=== PATIENT | male | born 1930 | race Caucasian/White ===

== ENCOUNTER 2016-10-31 10:07 | Inpatient (IN) ==
[2016-10-31] MEDS ORDERED: SODIUM CHLORIDE 0.9% 1,000 ML IV STA ×2 (10:37→11:15)
--- NOTE | 2016-10-31 10:43 | Emergency Department Note ---
Ajith Kimble Brooke, am scribing for, and in the presence of, Nick Caputo MD 10:36 . Patito Kimble James D, MD, personally performed the services described in this documentation, ascribed by Comfort Canseco in my presence, and it is both accurate and complete . Arrival - Arrival Chief Complaint: Altered Mental Status Stated Complaint: altered loc Limitations: Altered Mental Status Source: Patient, EMS, RN Notes Reviewed Time Seen by Provider: 10/31/16 10:32 - History of Present Illness HPI Narrative: Patient is a 86 year old male who was brought into the ED by EMS, [facility], with altered mental status. Patient is a poor historian. He has been here in the past and was talkative then, so this is not his normal state. He is not responding to questions upon exam. Allergies/Adverse Reactions: Allergies Allergy/AdvReac Type Severity Reaction Status Date / Time No Known Allergies Allergy Unverified 10/31/16 11:15 Review of System - Review of System ROS unobtainable: due to mental status - Review of System Constitutional: Absent: fever Respiratory: Absent: respiratory distress Medical,Surgical,& Family Hx - Social History Smoking Status: Never smoker Exam Vital Signs: Vital Signs Temperature 96.0 F L 10/31/16 10:15 Pulse Rate 91 H 10/31/16 12:30 Respiratory Rate 17 10/31/16 12:30 Blood Pressure 88/62 10/31/16 12:30 O2 Sat by Pulse Oximetry 96 10/31/16 12:30 GENERAL: This is a chronically ill-appearing, lethargic white male in no apparent distress. VITAL SIGNS: Reviewed HEENT: Head is atraumatic and normocephalic. Pupils are equal round react to light. Extraocular movements are intact. Oropharynx is benign with dry mucous membranes. NECK: Neck is soft and supple without tenderness. There are no masses. There is no lymphadenopathy. LUNGS: Lungs are clear to auscultation. Chest rises symmetrically. There is no chest wall tenderness. CV: Heart is regular rate and rhythm without murmurs rubs or gallops. ABDOMEN: Abdomen is soft, nontender to palpation. There are no abdominal abnormal masses palpated. There is no organomegaly. Bowel sounds are present and active. SKIN: Skin is warm and dry. No rash. EXTREMITIES: Patient has full range of motion without tenderness. There is no pedal edema. NEUROLOGIC: Awake, nonverbal. Cranial nerves II through XII are grossly intact. Motor is 5 over 5 in all extremities bilaterally. Course Course Narrative: Patient was given 2 L bolus of normal saline while in the emergency department. Results - Labs CBC & BMP: 10/31/16 11:42 10/31/16 11:42 Lab Results: I have reviewed the patients labs Labs: Laboratory Tests 10/31/16 11:10 Urine pH 7.0 Ur Specific [place] 1.012 Urine RBC 36 Urine WBC 1575 - EKG EKG results: interpreted by ERMD - Impressions EKG: Normal sinus rhythm with a rate of 71, occasional supraventricular premature complexes, nonspecific intraventricular conduction delay. - Diagnostic Findings Procedure: Chest x-ray: image reviewed by me Disposition Clinical Impression: Altered mental status, Hypotension, Sepsis, Acute renal failure Case discussed with: patient Disposition: Still a Patient Condition: Guarded
--- NOTE | 2016-10-31 11:01 | XRay Report ---
Portable chest Date: 10/31/2016 Clinical history: Alteration of consciousness Comparison: 10/02/2016 Technique: Portable AP sitting chest Findings: The heart is minimally enlarged with uncoiling of the aorta. Calcification in the aortic knob. Persistent relative elevation of the left hemidiaphragm with chronic scarring in the lungs. Decreased parenchymal findings when compared to the previous exam. No acute findings in the mediastinum with degenerative changes. Impression: Persistent relative elevation of the left hemidiaphragm with improved CHF. PROCEDURE INTERPRETED AT [facility] DEPARTMENT OF RADIOLOGY Final Report Signed by: Dr. Kiana Medrano
[2016-10-31] MEDS ORDERED: LEVOFLOXACIN INJ 500 MG in PREMIX 1 EACH IV STA (11:13)
[2016-10-31 11:25] LABS: Apearance,Urine CLOUDY (Clear); Bacteria,Urine Few /HPF (Few); Bilirubin,Urine Negative (Negative); Blood, Urine Small mg/dL (Negative); Glucose,Urine (UA) Negative (Negative); Ketones,Urine 5 mg/dL (Negative); Mucus,Urine Few /LPF (Occasional); Nitrite,Urine Negative (Negative); Protein,Urine 100 MG/DL; RBC,Urine 36 /HPF (0-4); Squamous Epithelial Cell,Urine Moderate /HPF (0-10); Urine Color Yellow (Yellow); Urine Specific Gravity 1.012 (1.001-1.035); Urine Urobilinogen < 2.0 EU/DL (0.2-1.0); WBC,Urine 1575 /HPF (0-6)
--- NOTE | 2016-10-31 11:32 | EKG Report ---
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
[2016-10-31] MEDS ORDERED: LEVOFLOXACIN INJ 100 ML IV ONE (11:40)
[2016-10-31 11:58] LABS: Basophils % 0.3 % (0.0-0.8); Hematocrit 40.3 VOL% (42.0-52.0); Hemoglobin 13.1 GM/DL (14.0-18.0); Immature Granulocytes % 0.6 %; Immature Granulocytes Absolute 0.06 #; Lymphocytes # 1.1 10*3/uL (1.4-4.0); Lymphocytes % 11.1 % (21.2-54.2); Mean Corpuscular HGB Conc 32.5 GM/DL (32-36); Mean Corpuscular Hemoglobin 31 PG (27-34); Mean Corpuscular Volume 94.6 FL (87-102); Mean Platelet Volume 10.8 FL (9.6-12.0); Monocytes # 0.9 10*3/uL (0.11-0.8); Monocytes % 8.8 % (1.7-12.7); Neutrophils # 7.7 10*3/uL (1.4-7.4); Neutrophils % 79.2 % (38.7-73.9); Platelet Count 238 T/CUMM (130-400); Red Blood Count 4.26 MC/CUMM (3.8-5.5); Red Cell Distribution Width 15.6 % (9.3-17.3); White Blood Count 9.7 T/CUMM (4-12)
[2016-10-31 12:09] LABS: INR 1.3; PT Patient Result 13.9 SECS; Partial Thromboplastin Time 30.1 SECS (0-40)
[2016-10-31 12:18] LABS: Lymphocytes 8 % (20-55); Segmented Neutrophils 86 % (50-85); Total Cells Counted 100
[2016-10-31 12:19] LABS: Burr Cells Few; Microcytosis Slight
[2016-10-31 12:28] LABS: Albumin 2.5 G/DL (3.4-5.0); Bilirubin,Total 0.4 MG/DL (0.2-1.0); Osmolality,Calculated 344.4 MOS/KG (273-304); Total Protein 6.3 G/DL (6.4-8.3)
[2016-10-31 12:30] LABS: Troponin I Only 0.201 NG/ML (0.00-0.045)
[2016-10-31 12:31] LABS: Potassium 6.2 MMOL/L (3.5-5.1)
[2016-10-31] MEDS ORDERED: INSULIN REGULAR 100 UNIT/ML IV STA (12:32)
[2016-10-31] MEDS ORDERED: SODIUM BICARBONATE 50 MEQ/50 ML VIAL IV STA (12:32)
[2016-10-31] MEDS ORDERED: DEXTROSE 50% 25 GM/50 ML VIAL IV STA (12:32)
[2016-10-31] MEDS ORDERED: DEXTROSE 50% 25 GM/50 ML VIAL IV ONE (12:39)
[2016-10-31] MEDS ORDERED: SODIUM BICARBONATE 50 MEQ/50 ML SYRINGE IV ONE (12:39)
[2016-10-31] MEDS ORDERED: INSULIN REGULAR 100 UNIT/ML ONE (12:40)
[2016-10-31] MEDS ORDERED: SODIUM CHLORIDE 0.9% 2,000 ML IV ONE (13:10)
[2016-10-31] MEDS ORDERED: ONDANSETRON 4 MG/2 ML VIAL IV PRN (13:16)
[2016-10-31] MEDS ORDERED: guaiFENesin/DM ER 600-30 MG TABLET PO PRN (13:16)
[2016-10-31] MEDS ORDERED: DOCUSATE SODIUM 100 MG CAPSULE PO PRN (13:16)
[2016-10-31] MEDS ORDERED: diphenhydrAMINE CAP 25 MG CAPSULE PO PRN (13:16)
[2016-10-31] MEDS ORDERED: ACETAMINOPHEN 325 MG TABLET PO PRN ×2 (13:16)
--- NOTE | 2016-10-31 13:27 | Hospitalist History & Physical ---
<TelloHyun Shalini - Last Filed: 10/31/16 13:22> Assessment and Plan - Time spent with patient Time spent with patient: Greater than 30 minutes (1) Severe sepsis with acute organ dysfunction Status: Acute Assessment and plan: 86-year-old white male admitted by the hospitalist service to ICU with metabolic encephalopathy due to severe sepsis with acute organ dysfunction due to urinary tract infection. Patient has hyperkalemia and elevated creatinine to 10.9. Patient will receive IV fluids per sepsis protocol, antibiotics have been started for urinary tract infection, nephrology has been consulted for his acute renal failure. His potassium should correct once his creatinine comes down. Restart his home medicines but we will hold all nephrotoxic agents. Dr. Burgess will see and examine patient and further recommendations to follow. Current Visit: Yes (2) Acute hyperkalemia Status: Acute Current Visit: Yes (3) Altered mental status Status: Acute Current Visit: Yes (4) Hypotension Status: Acute Current Visit: Yes (5) Acute renal failure Status: Acute Current Visit: Yes History of Present Illness Chief complaint: Altered mental status History of present illness: Mr. Cruz is a 86 year old male with history of CHF, hypertension, depression, dementia, dyslipidemia presenting to the ED from [facility] with altered mental status. Patient is a poor historian and lethargic. He is not responding to questions appropriately upon exam. Patient is tachycardic with heart rate in the low 100s. He is hypotensive with blood pressure 74/42. His white count is normal but his potassium is elevated at 6.2, creatinine elevated at 10.9. When patient was seen in the ED in September his creatinine was normal. Patient's lactic acid is normal at 1.5. Troponin elevated at 0.201. Patient found to have a urinary tract infection with moderate leukocytes. Herron was inserted and there is purulence in his urine. Patient's chest x-ray is okay and his lungs are clear. Patient's case was discussed with Dr. Caputo the ED physician and Dr. Burgess the admitting hospitalist, and it was agreed patient would be admitted to ICU for evaluation and treatment. Allergies Allergy/AdvReac Type Severity Reaction Status Date / Time No Known Allergies Allergy Unverified 10/31/16 11:15 Medical,Surgical,& Family Hx - Medical History Cardio: History of: CHF, Hypertension Psychological: History of: Depression Endocrine: History of: Dyslipidemia Respiratory: History of: Pneumonia Gastrointestinal: History of: GERD - Surgical History Additional Surgical History: Surgical history is unknown due to patient's mental status - Family History Additional Family History: Family history is unknown due to patient's mental status - Social History Smoking Status: Never smoker Cognitive Capacity: Patient has altered mental status and lethargic. He is not answering appropriate questions. This is difficult to obtain an appropriate review of systems and family history along with social history. Lives With:: [facility] Functional capacity: bed bound ROS unobtainable: due to mental status Exam - Constitutional Vitals: Period Temp Pulse Resp BP Sys/Macario Pulse Ox Last 24 Hr 91-95 17-21 74-88/42-62 96-99 Exam: Constitutional System: No distress. No tremulousness. Head: Normocephalic, atraumatic. Ears, Nose and Throat System: No evidence of Otitis or Mastoiditis. No epistaxis or discharge Eyes System: Pupils equal, round, and reactive. Extraocular muscles intact. Neck: Supple, without adenopathy, No jugular venous distention. No thyromegaly, neck mass, or prior surgery apparent. Respiratory System: Chest clear to auscultation. Cardiovascular System: Heart with tachycardic rate and rhythm. No murmur. GI System: Abdomen soft, nontender. Normo active bowel sounds present. Musculoskeletal System: limbs with no pedal edema. Full distal pulses. Neurological System: No discernable sensory deficit. Psychiatric System: Conversation is difficult due to mental status Results - Labs CBC & BMP: 10/31/16 11:42 10/31/16 11:42 Lab Results: I have reviewed the past 24 hour labs - EKG EKG results: sinus rhythm - Diagnostic Findings Procedure: Chest x-ray: report reviewed by me (Persistent relative elevation of the left hemidiaphragm with improved CHF) <Claudia Burgess - Last Filed: 10/31/16 17:12> History of Present Illness History of present illness: Patient seen and examined with ANDREA Javed, agree with history, assessment and plan as documented. 86 y/o WM admitted with sepsis secondary to urinary tract infection, ANSHUL and AMS. Starting broadly on vancomycin and cefepime. F/u urine culture. Creatinine elevated at 10 with hyperkalemia. Most likely due to hypoperfusion. Consult nephrology. Requiring levophed. Exam - Constitutional Vitals: Period Temp Pulse Resp BP Sys/Macario Pulse Ox Last 24 Hr 75-97 14-21 70-105/42-62 96-99 Results - Labs CBC & BMP: 10/31/16 11:42 10/31/16 11:42
[2016-10-31] MEDS ORDERED: VANCOMYCIN INJ 1,250 MG in SODIUM CHLORIDE 0.9% 250 ML IV PRN (13:30)
[2016-10-31] MEDS ORDERED: PANTOPRAZOLE 40 MG TABLET PO SCH (13:30)
[2016-10-31] MEDS ORDERED: NOREPINEPHRINE 4 MG/4 ML VIAL IV ONE (13:43)
[2016-10-31] MEDS: NOREPINEPHRINE 8 MG in SODIUM CHLORIDE 0.9% 242 ML IV SCH ×2 (13:50→22:58)
[2016-10-31] MEDS ORDERED: CEFEPIME 2,000 MG in SODIUM CHLORIDE 0.9% 100 ML IV ONE (15:00)
--- NOTE | 2016-10-31 15:53 | Nephrology Consult Note ---
History of Present Illness Chief complaint: Admitted with urosepsis. ANSHUL. History of present illness: Mr. Cruz is a 86 year old male with creatinine 1.3 a month ago. Reportedly had AMS at care home. Does not respond to verbal stimuli for me on exam. Hypotensive, purulent urine with >1500 wbcs/hpf, + ketones. Free water deficit manifested by hypernatremia. K 6.2 with hyperchloremic metabolic acidosis. Creatinine 10.9. Pt is on levophed for pressor support and had 3L NS bolused in ED. Home Medications Medication Instructions Recorded Confirmed Type Albuterol/Ipratropium Neb [Duoneb] 3 ml RESP TX RT Q6H PRN 10/31/16 10/31/16 History Amino Acids/Protein Hydrolys 30 ml PO BEDTIME 10/31/16 10/31/16 History [Pro-Stat Sugar Free Liquid] Aspirin Chew Tab 81 mg PO DAILY 10/31/16 10/31/16 History Atorvastatin [Lipitor] 40 mg PO BEDTIME 10/31/16 10/31/16 History Azithromycin Tab [Zithromax Tab] 250 mg PO DAILY 10/31/16 10/31/16 History Calcium (Citr)/Vit D 200-125 1 tablet PO DAILY 10/31/16 10/31/16 History [Citracal + D] Cyanocobalamin Tab [Vitamin B12 1,000 mcg PO DAILY 10/31/16 10/31/16 History Tab] Cyproheptadine Tab [Periactin Tab] 4 mg PO BID 10/31/16 10/31/16 History Docusate Sodium [Colace] 100 mg PO TID 10/31/16 10/31/16 History Ergocalciferol [Drisdol] 50,000 unit PO MO 10/31/16 10/31/16 History Escitalopram [Lexapro] 10 mg PO DAILY 10/31/16 10/31/16 History Furosemide Tab [Lasix Tab] 40 mg PO DAILY 10/31/16 10/31/16 History Gabapentin 300 mg PO BEDTIME 10/31/16 10/31/16 History HydrOXYzine PAMOATE CAP [Vistaril 25 mg PO Q6H PRN 10/31/16 10/31/16 History Cap] Hydrocortisone 2.5% Rectal Cr 1 applic TOP QID PRN 10/31/16 10/31/16 History [Anusol HC Cream] Lisinopril 5 mg PO BID 10/31/16 10/31/16 History Magnesium Hydroxide Susp [Milk of 30 ml PO Q12H PRN 10/31/16 10/31/16 History Magnesia] Meloxicam [Mobic] 15 mg PO DAILY 10/31/16 10/31/16 History Memantine HCl/Donepezil HCl 1 capsule PO QPM 10/31/16 10/31/16 History [Namzaric 28-10 mg] Methylphenidate HCl [Ritalin] 10 mg PO BID 10/31/16 10/31/16 History Metoprolol Succinate Xl [Toprol Xl] 25 mg PO DAILY 10/31/16 10/31/16 History Mirtazapine [Remeron] 30 mg PO BEDTIME 10/31/16 10/31/16 History Multivitamin [Multivitamins] 1 each PO DAILY 10/31/16 10/31/16 History OLANZapine TAB [ZyPREXA Tab] 5 mg PO BEDTIME 10/31/16 10/31/16 History Omeprazole [Prilosec] 20 mg PO DAILY 10/31/16 10/31/16 History Polyethylene Glycol Powder 17 gm PO BEDTIME PRN 10/31/16 10/31/16 History [Miralax] Promethazine Tab [Phenergan Tab] 25 mg PO Q8H PRN 10/31/16 10/31/16 History Senna Tab [Senokot] 17.2 mg PO BID 10/31/16 10/31/16 History Vit C/Vit E AC/Lut/Copper/Zinc 1 each PO BID 10/31/16 10/31/16 History [Preservision Lutein Softgel] valACYclovir [Valtrex] 500 mg PO DAILY 10/31/16 10/31/16 History Allergies Allergy/AdvReac Type Severity Reaction Status Date / Time No Known Allergies Allergy Unverified 10/31/16 11:15 Medical,Surgical,& Family Hx - Medical History Cardio: History of: CHF, Hypertension Psychological: History of: Depression Endocrine: History of: Dyslipidemia Respiratory: History of: Pneumonia Gastrointestinal: History of: GERD - Social History Smoking Status: Never smoker Exam - Vital Signs Vital signs: Period Temp Pulse Resp BP Sys/Macario Pulse Ox Last 24 Hr 75-95 14-21 70-105/42-62 96-99 - General Appearance General appearance: well-developed, chronically ill EENT: ATNC, PERRL, mucous membranes dry Neck: no JVD, no thyromegaly Respiratory: no kyphosis, clear Cardiology: no murmurs, no rub, edema (trace ankle) Gastrointestinal: normoactive bowel sounds, no tenderness Integumentary: no rash, warm and dry Neurologic: no focal deficit, obtunded Musculoskeletal: no deformities, no erythema Results - Labs CBC & BMP: 10/31/16 11:42 10/31/16 11:42 Assessment and Plan (1) ANSHUL (acute kidney injury) Problem details: No acute indication for renal replacement therapy at this time. Status: Acute Assessment and plan: Changed IVFs to D5 for starvation ketosis + 100meq sodium acetate to correct metabolic acidosis and drive potassium back intracellularly. Current Visit: Yes (2) Sepsis Problem details: One dose vancomycin, 1gm IVPB. Continue cefepime, continue levofloxacin 250mg IV q48hr from first dose of 500mg given in ED. Status: Acute Current Visit: Yes (3) Acute hyperkalemia Problem details: No addition treatment indicated other than correction of metabolic acidosis. Status: Acute Current Visit: Yes
[2016-10-31] MEDS: PANTOPRAZOLE 40 MG VIAL IV SCH (15:55)
[2016-10-31] MEDS: SODIUM ACETATE 100 MEQ in DEXTROSE 5% 1,000 ML IV SCH ×2 (16:00→22:59)
[2016-10-31] MEDS ORDERED: SODIUM ACETATE 150 MEQ in STERILE WATER INJ 850 ML IV SCH (16:00)
[2016-10-31] MEDS ORDERED: VANCOMYCIN INJ 1,500 MG in SODIUM CHLORIDE 0.9% 500 ML IV ONE (16:00)
[2016-10-31] MEDS: LEVOFLOXACIN INJ 250 MG in PREMIX 1 EACH IV SCH (16:56)
--- NOTE | 2016-10-31 17:04 | ECHO Report ---
Claritza Cruz Exam Date: 10/31/2016 14:01 Referring Physician: Technologist: Dayna Garsia Age: 86 Ht (in): Wt (lb): Gender: M Exam Location: N: [id number] Indications: BP: / HR: Rhythm: Sinus Technical Quality: Fair IMPRESSIONS Severe global hypokinesis. Grade II/IV diastolic dysfunction, moderately elevated filling pressures. Normal right ventricular size. The right atrium is mildly enlarged. The left atrium is mildly enlarged. Mildly thickened mitral valve with mild mitral regurgitation. Aortic valve sclerosis. Trace to mild aortic valve regurgitation. Mild tricuspid valve regurgitation. PAP40 mmHG. Trace pulmonary valve regurgitation. No pericardial effusion. Normal size aortic root and proximal ascending aorta. MEASUREMENTS (Male / Female) Normal Values 2D ECHO LV Diastolic Diameter PLAX 4.3 cm 4.2 - 5.9 / 3.9 - 5.3 cm LV Systolic Diameter PLAX 3.7 cm LV Fractional Shortening PLAX 14.7 % IVS Diastolic Thickness 1.2 cm 0.6 - 1.0 / 0.6 - 0.9 cm LVPW Diastolic Thickness 1.2 cm 0.6 - 1.0 / 0.6 - 0.9 cm RV Internal Dim ED PLAX 2.7 cm Aortic Root Diameter 3.9 cm LA Systolic Diameter LX 3.1 cm 3.0 - 4.0 / 2.7 - 3.8 cm FINDINGS Left Ventricle EF20-25 %. severe global hypokinesis.Grade II/IV diastolic dysfunction, moderately elevated filling pressures. Right Ventricle Normal right ventricular size. Right Atrium The right atrium is mildly enlarged. Left Atrium The left atrium is mildly enlarged. Mitral Valve Trace mitral valve regurgitation. Mildly thickened mitral valve with mild mitral regurgitation. Aortic Valve Aortic valve sclerosis. Trace to mild aortic valve regurgitation. Tricuspid Valve Morphologically normal tricuspid valve. Mild tricuspid valve regurgitation. PAP40 mmHG. Pulmonic Valve Trace pulmonary valve regurgitation. Pericardium No pericardial effusion. Aorta Normal size aortic root and proximal ascending aorta. Armando Guallpa (Electronically Signed) Final Date: 31 Oct 2016 17:03
[2016-10-31] MEDS: MORPHINE 2 MG/1 ML SYRINGE IV PRN (22:36)
[2016-10-31] MEDS: ENOXAPARIN 30 MG/0.3 ML SYRINGE SUBCUT SCH (22:40)
[2016-11-01] MEDS: MORPHINE 2 MG/1 ML SYRINGE IV PRN ×2 (02:48→21:44)
[2016-11-01] MEDS: NOREPINEPHRINE 8 MG in SODIUM CHLORIDE 0.9% 242 ML IV SCH ×3 (02:57→13:30)
[2016-11-01] MEDS: SODIUM ACETATE 100 MEQ in DEXTROSE 5% 1,000 ML IV SCH ×2 (02:57→08:50)
[2016-11-01 06:05] LABS: Basophils % 0.3 % (0.0-0.8); Eosinophils # 0.1 10*3/uL (0.0-0.87); Eosinophils % 0.5 % (0.00-10.9); Hematocrit 35.3 VOL% (42.0-52.0); Immature Granulocytes % 0.6 %; Immature Granulocytes Absolute 0.08 #; Lymphocytes # 2.1 10*3/uL (1.4-4.0); Lymphocytes % 16.3 % (21.2-54.2); Mean Corpuscular Hemoglobin 31 PG (27-34); Mean Corpuscular Volume 91.9 FL (87-102); Mean Platelet Volume 10.5 FL (9.6-12.0); Monocytes % 7.8 % (1.7-12.7); Neutrophils # 9.4 10*3/uL (1.4-7.4); Neutrophils % 74.5 % (38.7-73.9); Platelet Count 227 T/CUMM (130-400); Red Blood Count 3.84 MC/CUMM (3.8-5.5); Red Cell Distribution Width 15.7 % (9.3-17.3); White Blood Count 12.6 T/CUMM (4-12)
[2016-11-01 06:25] LABS: Band Neutrophils 1 % (0-10); Elliptocytes Few; Hypochromasia Slight; Lymphocytes 16 % (20-55); Platelet Estimate Normal; Segmented Neutrophils 78 % (50-85); Total Cells Counted 100
[2016-11-01 06:26] LABS: Microcytosis Slight
[2016-11-01 06:32] LABS: Calcium 7.9 MG/DL (8.5-10.1); Magnesium 1.5 MG/DL (1.8-2.4); Osmolality,Calculated 344.1 MOS/KG (273-304)
--- NOTE | 2016-11-01 09:10 | Nephrology Progress Note ---
Nephrology - PN: Subj Interval history: No acute overnight events. Pt unresponsive. Still requiring pressor support to maintain MAPS >60mm Hg. Hyperkalemia corrected with correction of his metabolic acidosis. Na up to 149 from 147 reflecting worsening free water deficit. Creatinine improved to 9.0 from 10.9. Urine looks less purulent. Exam (PN)-Nephrology - Vital Signs Vital signs: Period Temp Pulse Resp BP Sys/Macario Pulse Ox Last 24 Hr 97.4 F-98.6 F 75-110 14-28 62-125/36-79 89-99 - General Appearance General appearance: well-developed, chronically ill EENT: ATNC, PERRL, mucous membranes dry Neck: no JVD, no thyromegaly Respiratory: no kyphosis, clear Cardiology: no murmurs, no rub, no edema Gastrointestinal: normoactive bowel sounds, no tenderness Integumentary: no rash, warm and dry Neurologic: obtunded Musculoskeletal: no deformities, no erythema - Lab 11/01/16 05:32 11/01/16 05:32 Most recent lab results Calcium 7.9 MG/DL (8.5-10.1) L 11/01/16 05:32 Magnesium 1.5 MG/DL (1.8-2.4) L 11/01/16 05:32 Assessment and Plan (1) ANSHUL (acute kidney injury) Problem details: Improved. No acute indication for renal replacement therapy at this time. Status: Acute Assessment and plan: Continue bicarb. Change to give more free water. Current Visit: Yes (2) Sepsis Problem details: One dose vancomycin, 1gm IVPB. Continue cefepime, continue levofloxacin 250mg IV q48hr from first dose of 500mg given in ED. Status: Acute Current Visit: Yes (3) Acute hyperkalemia Problem details: No addition treatment indicated other than correction of metabolic acidosis. Status: Acute Current Visit: Yes
[2016-11-01] MEDS: PANTOPRAZOLE 40 MG VIAL IV SCH (09:20)
[2016-11-01] MEDS: STERILE WATER IV SCH ×4 (09:20→22:21)
[2016-11-01] MEDS: SODIUM ACETATE IV SCH ×4 (09:20→22:21)
[2016-11-01] MEDS: SKIN HEALING OINT (AQUAPHOR) 50 GM TUBE TOP PRN (10:00)
--- NOTE | 2016-11-01 10:00 | Hospitalist Progress Note ---
Assessment and Plan (1) Septic shock Status: Acute Assessment and plan: Secondary to UTI. Requiring levophed Continue vanc. Started on levaquin. Cefepime was discontinued. Current Visit: Yes (2) Altered mental status Status: Acute Assessment and plan: Secondary to infection Current Visit: Yes (3) Hypotension Status: Acute Assessment and plan: Due to septic shock Continue levophed Current Visit: Yes (4) ANSHUL (acute kidney injury) Problem details: Improved. No acute indication for renal replacement therapy at this time. Status: Acute Assessment and plan: Related to septic shock, renal hypoperfusion Nephrology assisting Improving with IV fluids with bicarb Current Visit: Yes (5) Hyperkalemia Status: Acute Assessment and plan: Improving Current Visit: Yes Hospitalist: Subjective Interval history: Overnight patient with reports of decreasing oxygen, improved with facemask. Creatinine and potassium downtrending. Nephrology assisting. IV fluids changed to sterile water with bicarb. Continue abx for uti. F/u urine culture. Exam - Constitutional Vitals: Period Temp Pulse Resp BP Sys/Macario Pulse Ox Last 24 Hr 97.4 F-98.6 F 75-110 14-28 62-125/36-79 89-99 General appearance: normal weight - Head Head exam: Present: normocephalic, atraumatic - Eye Eye exam: Present: EOMI Pupils: Present: FRANK - ENT ENT exam: Present: normal exam - Neck Neck exam: Present: normal inspection - Respiratory Respiratory exam: Present: clear to auscultation bilaterally. Absent: rhonchi, wheezes - Cardiovascular Cardiovascular exam: Present: regular rate and rhythm - GI/Abdominal GI/Abdominal exam: Present: normal bowel sounds, soft. Absent: tenderness, rebound - Extremities Exam Extremities exam: Present: normal inspection - Back Exam Back exam: Present: normal inspection - Neurological Exam Neurological exam: Present: other (lethagic) - Psychiatric Psychiatric exam: Present: normal affect, normal mood - Skin Skin exam: Present: warm, intact Results - Labs CBC & BMP: 11/01/16 05:32 11/01/16 05:32
[2016-11-01] MEDS: DESITIN 4OZ/NYSTATIN 15 GRAM MIXTURE PASTE TOP SCH ×2 (11:42→21:44)
[2016-11-01] MEDS ORDERED: CEFEPIME 1,000 MG in SODIUM CHLORIDE 0.9% 100 ML IV SCH (15:00)
[2016-11-01] MEDS: NOREPINEPHRINE 16 MG in SODIUM CHLORIDE 0.9% 234 ML IV SCH (18:37)
[2016-11-01] MEDS: ENOXAPARIN 30 MG/0.3 ML SYRINGE SUBCUT SCH (21:44)
[2016-11-02] MEDS: MORPHINE 2 MG/1 ML SYRINGE IV PRN ×3 (01:09→12:00)
[2016-11-02 01:16] LABS: Magnesium 1.1 MG/DL (1.8-2.4); Potassium 4.1 MMOL/L (3.5-5.1)
[2016-11-02] MEDS ORDERED: SODIUM CHLORIDE 0.9% 2,000 ML IV ONE (01:50)
[2016-11-02] MEDS ORDERED: MAGNESIUM SULF RIDER 4 GM in PREMIX 1 EACH IV ONE (01:50)
[2016-11-02] MEDS ORDERED: MAGNESIUM SULF RIDER 50 ML IV ONE (01:52)
[2016-11-02] MEDS ORDERED: PHENYLEPHRINE DRIP 40 MG/250 ML PREMIX IV ONE (03:45)
[2016-11-02] MEDS ORDERED: SODIUM CHLORIDE 0.9% 500 ML IV ONE ×2 (03:46→06:24)
[2016-11-02] MEDS: NOREPINEPHRINE 16 MG in SODIUM CHLORIDE 0.9% 234 ML IV SCH ×2 (04:02→18:09)
[2016-11-02] MEDS: PHENYLEPHRINE DRIP 40 MG/250 ML PREMIX IV SCH ×3 (04:02→12:01)
[2016-11-02] MEDS: STERILE WATER IV SCH ×3 (05:15→19:25)
[2016-11-02] MEDS: SODIUM ACETATE IV SCH ×3 (05:15→19:25)
[2016-11-02 05:58] LABS: Calcium 7.3 MG/DL (8.5-10.1); Osmolality,Calculated 324.6 MOS/KG (273-304); Potassium 4.1 MMOL/L (3.5-5.1)
[2016-11-02 06:43] LABS: Basophils # 0.1 10*3/uL (0.0-0.2); Basophils % 0.4 % (0.0-0.8); Eosinophils # 0.2 10*3/uL (0.0-0.87); Hematocrit 37.2 VOL% (42.0-52.0); Hemoglobin 12.6 GM/DL (14.0-18.0); Immature Granulocytes Absolute 0.19 #; Lymphocytes # 2.4 10*3/uL (1.4-4.0); Lymphocytes % 12.1 % (21.2-54.2); Mean Corpuscular HGB Conc 33.9 GM/DL (32-36); Mean Corpuscular Hemoglobin 31 PG (27-34); Mean Corpuscular Volume 91.9 FL (87-102); Mean Platelet Volume 10.5 FL (9.6-12.0); Monocytes # 1.3 10*3/uL (0.11-0.8); Monocytes % 6.6 % (1.7-12.7); Neutrophils # 15.7 10*3/uL (1.4-7.4); Neutrophils % 78.9 % (38.7-73.9); Red Blood Count 4.05 MC/CUMM (3.8-5.5); Red Cell Distribution Width 15.6 % (9.3-17.3)
[2016-11-02 06:45] LABS: Platelet Count 180 T/CUMM (130-400); White Blood Count 19.9 T/CUMM (4-12)
[2016-11-02 07:28] LABS: Eosinophils 1 % (0-10); Lymphocytes 12 % (20-55); Segmented Neutrophils 84 % (50-85); Total Cells Counted 100
[2016-11-02 07:29] LABS: Hypochromasia 1+; Microcytosis Slight; Ovalocytes Slight; Platelet Estimate Normal
--- NOTE | 2016-11-02 08:01 | EKG Report ---
Stationary ECG Study [facility] Test Date: 11/02/2016 12:46:12 AM Pat Name: MERCEDES FALLS Department: Room: 111 Gender: M Emergency Vehicle Dispatcher: CURTIS SANCHEZ : 1930 Requested by: Migdalia Collins Order Number: [id number] Reading MD: MARIA ESTHER SARAVIA Intervals [place] Rate: 141 P: 999 [place]: 0 QRS: -44 QRSD: 124 T: 118 QT: 331 QTc: 413 Interpretive Statements ATRIAL FIBRILLATION WITH RAPID VENTRICULAR RESPONSE MARKED LEFT AXIS DEVIATION PROBABLE SEPTAL MYOCARDIAL INFARCTION, PROBABLY OLD MODERATE T-WAVE ABNORMALITY, CONSIDER LATERAL ISCHEMIA Electronically Signed On 11-02-16 11:27:28 CDT by MARIA ESTHER SARAVIA [email or web address]
[2016-11-02] MEDS ORDERED: METOPROLOL TARTRATE 5 MG/5 ML VIAL IV ONE (08:41)
--- NOTE | 2016-11-02 08:44 | Nephrology Progress Note ---
Nephrology - PN: Subj Interval history: Pt responds to verbal stimuli for the first time for me. Says "morning". He went into Afib c RVR last night. Tachy at 150/min now. On two pressors to maintain MAPs. Systolic in 90s. Ucx GNRs/GPCs both >100k colonies, ID and sens pending. WBC up to 19K. Creatinine down to 6.3. Hyperkalemia/acidosis improved. Free water deficit improved. Exam (PN)-Nephrology - Vital Signs Vital signs: Period Temp Pulse Resp BP Sys/Macario Pulse Ox Last 24 Hr 97.0 F-97.8 F 95-152 18-24 75-122/45-93 92-100 - General Appearance General appearance: well-developed, chronically ill EENT: ATNC, PERRL, mucous membranes dry, hearing intact, vision intact Neck: no JVD, no thyromegaly Respiratory: no kyphosis, clear Cardiology: no murmurs, no rub, no edema Gastrointestinal: normoactive bowel sounds, no tenderness Integumentary: no rash, warm and dry Neurologic: no focal deficit, no asterixis Musculoskeletal: no deformities, no erythema Psychiatric: mood/affect appropriate, cooperative - Lab 11/02/16 06:13 11/02/16 05:17 Most recent lab results Calcium 7.3 MG/DL (8.5-10.1) L 11/02/16 05:17 Magnesium 2.0 MG/DL (1.8-2.4) 11/02/16 05:17 Assessment and Plan (1) ANSHUL (acute kidney injury) Problem details: Improved. No acute indication for renal replacement therapy at this time. Status: Acute Assessment and plan: Continue bicarb. Change to give more free water. Current Visit: Yes (2) Sepsis Problem details: Give another dose of vancomycin now 1.5gms IVPB. Check vanc level in am. Redose for level <15. Continue levofloxacin 250mg IV q48hr from first dose of 500mg given in ED. Status: Acute Current Visit: Yes (3) Acute hyperkalemia Problem details: No addition treatment indicated other than correction of metabolic acidosis. Status: Acute Current Visit: Yes (4) Afib Problem details: give lopressor 5mg IVP now stat, may repeat q5min x 2. Consult cardiology. Status: Acute Current Visit: Yes
[2016-11-02] MEDS ORDERED: METOPROLOL TARTRATE 5 MG/5 ML VIAL IV STA (08:45)
[2016-11-02] MEDS ORDERED: DIGOXIN 0.5 MG/2 ML AMP ONE (08:52)
[2016-11-02] MEDS ORDERED: DIGOXIN 0.5 MG/2 ML AMP IV ONE (08:58)
--- NOTE | 2016-11-02 09:17 | Cardiology Consult Note ---
Assessment and Plan - Time spent with patient Time spent with patient: Greater than 30 minutes (1) Dementia Status: Chronic Assessment and plan: SEE PLAN OF CARE LISTED BELOW Current Visit: Yes (2) Dilated cardiomyopathy Status: Chronic Assessment and plan: SEE PLAN OF CARE LISTED BELOW Current Visit: Yes (3) Acute renal failure Status: Acute Assessment and plan: SEE PLAN OF CARE LISTED BELOW Current Visit: Yes (4) Severe sepsis with acute organ dysfunction Status: Acute Assessment and plan: SEE PLAN OF CARE LISTED BELOW Current Visit: Yes (5) Afib Problem details: give lopressor 5mg IVP now stat, may repeat q5min x 2. Consult cardiology. Status: Acute Assessment and plan: SEE PLAN OF CARE LISTED BELOW Current Visit: Yes Qualifiers: Atrial fibrillation type: unspecified Qualified Code(s): I48.91 - Unspecified atrial fibrillation (6) Advanced age Status: Chronic Assessment and plan: SEE PLAN OF CARE LISTED BELOW Current Visit: Yes History of Present Illness - Data of Consult Patient: known to practice within the last 3 years Consult date: 11/02/16 Requesting Physician: Mars Thomas Primary care physician: Domingo Keller - Consult Narrative Reason for consult: Atrial fib with RVR History of present illness: MACHINE HOSTLER: DR. KNUTSON PCP: DR. DOMINGO KELLER Please note, patient is a poor historian and majority of this information is taken from medical records and staff. He is being seen in the ICU. Mr. Cruz, 86WM, is followed by Dr. Knutson. He was last seen in cardiology clinic September 18, 2016. Risk factors include: Advanced age, hypertension, sedentary lifestyle. History of dilated cardiomyopathy, dementia, moderate MR. 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 Patient was admitted with metabolic encephalopathy due to severe sepsis with acute organ dysfunction due to urinary tract infection October 31, 2016. He has acute renal failure and was hyperkalemic on admission. Creatinine initially, 10.9 on admission. This morning at 6.3. Hyperkalemia has resolved with potassium 4.1 this morning. He was severely hypomagnesemic on admission. His troponin is flat 0.201 and 0.190 in the setting of sepsis, severe acute renal failure. Patient developed atrial fibrillation with rapid ventricular response last evening. This morning heart rate is 120 - 130 bpm. He is being maintained on [address] Knutson's clinic note, I see no prior history of known atrial fibrillation. I will give him 1 dose of IV digoxin and monitor his heart rate given his severe renal insufficiency. Again, blood pressure will not allow for introduction of a beta-geovany or calcium channel geovany. At this point he is on phenylephrine and norepinephrine. Would begin with weaning of phenylephrine first. I will order thyroid studies, close monitoring of his electrolytes as well. Echocardiogram reveals: EF 20%, grade 2/4 diastolic dysfunction, mild MR and PAP 40 mmHg. He is mildly anemic. He is receiving Lovenox 30 mg subcu given his severe renal insufficiency. We will further discuss with Dr. Sow and await additional recommendations. ASSESSMENT/PLAN: 1. SEPSIS - continue current plan of care. Blood cultures are pending. He is being treated for UTI. Was treated for pneumonia in August 2016 2. ATRIAL FIBRILLATION WITH RVR - rate control with digoxin this morning. Unfortunately, patient's blood pressure will not allow for introduction of beta- geovany and ALONDRA inhibitor. This may be new onset atrial fib but this is uncertain. Continue with low-dose Lovenox given the severe acute renal failure. 3. DEMENTIA - continue current plan of care 4. ACUTE RENAL FAILURE (STAGE IV) - nephrology has been consulted. This is improving 5. DILATED CARDIOMYOPATHY (EF 20%) - at this time, no evidence of congestive heart failure. Etiology of cardiomyopathy undetermined as he is not a candidate for invasive workup. However, this is a chronic condition. CC: Claudia Burgess MD - Home Medications and Allergies Home Medications: Home Medications Medication Instructions Recorded Confirmed Type Albuterol/Ipratropium Neb [Duoneb] 3 ml RESP TX RT Q6H PRN 10/31/16 10/31/16 History Amino Acids/Protein Hydrolys 30 ml PO BEDTIME 10/31/16 10/31/16 History [Pro-Stat Sugar Free Liquid] Aspirin Chew Tab 81 mg PO DAILY 10/31/16 10/31/16 History Atorvastatin [Lipitor] 40 mg PO BEDTIME 10/31/16 10/31/16 History Azithromycin Tab [Zithromax Tab] 250 mg PO DAILY 10/31/16 10/31/16 History Calcium (Citr)/Vit D 200-125 1 tablet PO DAILY 10/31/16 10/31/16 History [Citracal + D] Cyanocobalamin Tab [Vitamin B12 1,000 mcg PO DAILY 10/31/16 10/31/16 History Tab] Cyproheptadine Tab [Periactin Tab] 4 mg PO BID 10/31/16 10/31/16 History Docusate Sodium [Colace] 100 mg PO TID 10/31/16 10/31/16 History Ergocalciferol [Drisdol] 50,000 unit PO MO 10/31/16 10/31/16 History Escitalopram [Lexapro] 10 mg PO DAILY 10/31/16 10/31/16 History Furosemide Tab [Lasix Tab] 40 mg PO DAILY 10/31/16 10/31/16 History Gabapentin 300 mg PO BEDTIME 10/31/16 10/31/16 History HydrOXYzine PAMOATE CAP [Vistaril 25 mg PO Q6H PRN 10/31/16 10/31/16 History Cap] Hydrocortisone 2.5% Rectal Cr 1 applic TOP QID PRN 10/31/16 10/31/16 History [Anusol HC Cream] Lisinopril 5 mg PO BID 10/31/16 10/31/16 History Magnesium Hydroxide Susp [Milk of 30 ml PO Q12H PRN 10/31/16 10/31/16 History Magnesia] Meloxicam [Mobic] 15 mg PO DAILY 10/31/16 10/31/16 History Memantine HCl/Donepezil HCl 1 capsule PO QPM 10/31/16 10/31/16 History [Namzaric 28-10 mg] Methylphenidate HCl [Ritalin] 10 mg PO BID 10/31/16 10/31/16 History Metoprolol Succinate Xl [Toprol Xl] 25 mg PO DAILY 10/31/16 10/31/16 History Mirtazapine [Remeron] 30 mg PO BEDTIME 10/31/16 10/31/16 History Multivitamin [Multivitamins] 1 each PO DAILY 10/31/16 10/31/16 History OLANZapine TAB [ZyPREXA Tab] 5 mg PO BEDTIME 10/31/16 10/31/16 History Omeprazole [Prilosec] 20 mg PO DAILY 10/31/16 10/31/16 History Polyethylene Glycol Powder 17 gm PO BEDTIME PRN 10/31/16 10/31/16 History [Miralax] Promethazine Tab [Phenergan Tab] 25 mg PO Q8H PRN 10/31/16 10/31/16 History Senna Tab [Senokot] 17.2 mg PO BID 10/31/16 10/31/16 History Vit C/Vit E AC/Lut/Copper/Zinc 1 each PO BID 10/31/16 10/31/16 History [Preservision Lutein Softgel] valACYclovir [Valtrex] 500 mg PO DAILY 10/31/16 10/31/16 History Allergies/Adverse Reactions: Allergies Allergy/AdvReac Type Severity Reaction Status Date / Time No Known Allergies Allergy Unverified 10/31/16 11:15 Review of systems: Unable to obtain a review of systems due to patient's dementia Medical,Surgical,& Family Hx - Medical History Cardio: History of: CHF, Hypertension No history of: CAD, MA Psychological: History of: Depression Neurology: History of: Dementia Endocrine: History of: Dyslipidemia Respiratory: History of: Pneumonia Gastrointestinal: History of: GERD - Social History Smoking Status: Never smoker Frequency of Alcohol Use: Unknown Type of Drug Use: Unknown Marital Status: Unknown Physical Examination Vital Signs Temp Pulse Resp BP Pulse Ox 96.0 F L 93 H 23 66/47 93 L 10/31/16 10:15 10/31/16 10:15 10/31/16 10:15 10/31/16 10:15 10/31/16 10:15 General: [Pleasantly confused but cooperative. ] [Appears comfortable.] HEENT: [Normocephalic, atraumatic. Mucous membranes moist. No jaundice noted. Conjunctiva moist and clear, sclerae anicteric] Neck: No obvious JVD/HJR, no thyromegaly or lymphadenopathy noted. No carotid bruit appreciated Cardiac: [Irregularly irregular rhythm, tachycardia rate. [No obvious murmur , rub or gallop.] Lungs: [Clear to auscultation without accessory muscle use to assist the respiratory pattern.] Using oxygen via nasal cannula. Abdomen: Soft, bowel sounds normoactive. Nontender and nondistended. No abdominal bruit or thrill noted. No masses noted. Musculoskeletal: No fluid collection. Decreased range of motion is noted. Extremities: No clubbing, cyanosis noted. [ LUE edema > RUE edema. ] Generalized edema noted. Upper extremity pulses 2+. Lower extremity pulses 1+ . Capillary refill less than 3 seconds. Skin: No unusual lesions or rashes. No skin breakdown appreciated. Neuro: Awake, alert. No essential tremor is appreciated. Result/EKG - Labs CBC & BMP: 11/02/16 06:13 11/02/16 05:17 Lab Results: I have reviewed the past 24 hour labs Labs: Laboratory Results - last 24 hr 11/02/16 11/02/16 11/02/16 00:44 05:17 06:13 WBC 19.9 H D RBC 4.05 Hgb 12.6 L Hct 37.2 L MCV 91.9 MCH 31 MCHC 33.9 RDW 15.6 Plt Count 180 D MPV 10.5 Neut % (Auto) 78.9 H Lymph % (Auto) 12.1 L Schley % (Auto) 6.6 Eos % (Auto) 1.0 Baso % (Auto) 0.4 Neut # (Auto) 15.7 H Lymph # (Auto) 2.4 Schley # (Auto) 1.3 H Eos # (Auto) 0.2 Baso # (Auto) 0.1 Total Counted 100 Immature Gran % 1.0 Nucleated RBC % 0.0 Immature Gran # 0.19 Segmented Neutrophils 84 Lymphocytes 12 L Monocytes 3 Eosinophils 1 Nucleated RBCs # 0.00 Platelet Estimate Normal Hypochromasia 1+ Microcytosis Slight Ovalocytes Slight Morphology Comment Sodium 146 H Potassium 4.1 4.1 Chloride 110 H Carbon Dioxide 20 L Anion Gap 20.1 H BUN 110 H D Creatinine 6.30 H GFR Calculation 9 BUN/Creatinine Ratio 17.00 Glucose 97 Calculated Osmolality 324.6 H Calcium 7.3 L Magnesium 1.1 L 2.0 - Diagnostic Findings Procedure: Chest x-ray: report reviewed by me - EKG EKG results: interpreted by me EKG shows: atrial fibrillation (RVR)
[2016-11-02] MEDS: PANTOPRAZOLE 40 MG VIAL IV SCH (09:25)
[2016-11-02] MEDS: DESITIN 4OZ/NYSTATIN 15 GRAM MIXTURE PASTE TOP SCH (09:30)
[2016-11-02 09:46] LABS: Free T4 (Free Thyroxine) 1.62 NG/DL (0.76-1.46); Thyroid Stimulating Hormone 0.274 uIU/ml (0.358-3.74)
[2016-11-02] MEDS ORDERED: VANCOMYCIN INJ 1,500 MG in SODIUM CHLORIDE 0.9% 500 ML IV ONE (10:00)
--- NOTE | 2016-11-02 11:48 | Hospitalist Progress Note ---
Assessment and Plan (1) Septic shock Status: Acute Assessment and plan: Secondary to UTI. Requiring levophed Continue vanc. Started on levaquin. Cefepime was discontinued. Current Visit: Yes (2) Altered mental status Status: Acute Assessment and plan: Secondary to infection Current Visit: Yes (3) Hypotension Status: Acute Assessment and plan: Due to septic shock Continue levophed Current Visit: Yes (4) ANSHUL (acute kidney injury) Problem details: Improved. No acute indication for renal replacement therapy at this time. Status: Acute Assessment and plan: Related to septic shock, renal hypoperfusion Nephrology assisting Improving with IV fluids with bicarb Current Visit: Yes (5) Hyperkalemia Status: Resolved Assessment and plan: Improving Current Visit: Yes (6) Afib Problem details: give lopressor 5mg IVP now stat, may repeat q5min x 2. Consult cardiology. Status: Acute Assessment and plan: Given a dose of lopressor Cardiology consulted Current Visit: Yes Qualifiers: Atrial fibrillation type: unspecified Qualified Code(s): I48.91 - Unspecified atrial fibrillation Hospitalist: Subjective Interval history: Overnight, patient went into atrial fibrillation. Magnesium was found to be low , was replaced. This morning heart rate in 150s. He was given a dose of lopressor and cardiology was consulted. Potassium is now down to normal, creatinine continues to improve. Nephrology assisting. Leukocytosis continues to worsen. Urine culture growing gram negative rods and gram positive cocci. Currently on vancomycin and levaquin. F/u urine culture Exam - Constitutional Vitals: Period Temp Pulse Resp BP Sys/Macario Pulse Ox Last 24 Hr 97.0 F-97.8 F 99-152 18-24 75-120/45-93 92-100 General appearance: normal weight - Head Head exam: Present: normocephalic, atraumatic - Eye Eye exam: Present: EOMI Pupils: Present: FRANK - ENT ENT exam: Present: normal exam - Neck Neck exam: Present: normal inspection - Respiratory Respiratory exam: Present: clear to auscultation bilaterally - Cardiovascular Cardiovascular exam: Present: regular rate and rhythm - GI/Abdominal GI/Abdominal exam: Present: normal bowel sounds, soft. Absent: tenderness, rebound - Extremities Exam Extremities exam: Present: normal inspection - Back Exam Back exam: Present: normal inspection - Skin Skin exam: Present: warm, intact Results - Labs CBC & BMP: 11/02/16 06:13 11/02/16 05:17
--- NOTE | 2016-11-02 12:43 | Ultrasound Report ---
Exam: Left upper extremity venous Doppler/duplex ultrasound Comparison: None Clinical history: Left arm swelling Technique: Duplex scan of the left upper extremity veins using th B- mode/grayscale imaging and Dopplers spectral analysis and color flow. Findings: There is normal flow in the left internal jugular, subclavian, axillary, cephalic, brachial, and basilic veins. Major venous structures of the left upper extremity demonstrating normal course and caliber with normal color-flow study and spectral analysis. Normal compression and augmentation. Impression: No evidence to suggest venous thrombosis within the left upper extremity. Ultrasound images were captured and stored. PROCEDURE INTERPRETED AT [facility] DEPARTMENT OF RADIOLOGY Final Report Signed by: Dr. Kiana Medrano
--- NOTE | 2016-11-02 14:10 | Operative Note ---
Date of procedure: 11/02/16 Pre-op diagnosis: Inadequate venous access Post-op diagnosis: same Procedure: Preoperative diagnosis Hypotension with inadequate venous access Postoperative diagnosis Same Procedures performed Right internal jugular central line placement Ultrasound guidance and interpretation of images Findings The right internal jugular vein was compressible and was accessed on second stick with venous nonpulsatile blood return. Wire placement was confirmed with ultrasound and the vein was accessed under ultrasound guidance. The catheter was placed at 15 centimeters at the skin level. Complications None apparent Specimen None Anesthesia Local 10 cc lidocaine Indication Hypotension with inadequate venous access Description of procedure The patient was placed in supine position in his ICU bed. The neck was prepped with chlorhexidine and draped sterilely. Timeout was called. Ultrasound was used to identify the vascular structures in the right neck. The jugular vein is compressible. Local anesthetic was administered under ultrasound guidance. The vein was accessed with a needle on the second attempt under ultrasound guidance. Venous nonpulsatile blood return was obtained. A wire was passed easily into the venous system and placement was confirmed again with ultrasound. A skin incision was made alongside the wire and the dilator was placed over the wire. Seldinger technique was used to place a triple-lumen catheter and it was threaded over the wire up to 15 centimeters at the skin. The catheter was sewn in place at this location. All 3 lm returned blood easily and were flushed with saline. The catheter was sewn in place with 3-0 silk sutures in a Biopatch sterile dressing was placed with Tegaderm. Postoperative plan Chest x-ray Surgeon / Physician: Kyle Pizarro Results - Labs CBC & BMP: 11/02/16 06:13 11/02/16 05:17 Discharge Plan - Discharge Medications No Action Meloxicam [Mobic] 15 mg PO DAILY Multivitamin [Multivitamins] 1 each PO DAILY Magnesium Hydroxide Susp [Milk of Magnesia] 30 ml PO Q12H PRN PRN Reason: Constipation Gabapentin 300 mg PO BEDTIME Calcium (Citr)/Vit D 200-125 [Citracal + D] 1 tablet PO DAILY Docusate Sodium [Colace] 100 mg PO TID Senna Tab [Senokot] 17.2 mg PO BID Memantine HCl/Donepezil HCl [Namzaric 28-10 mg] 1 capsule PO QPM Promethazine Tab [Phenergan Tab] 25 mg PO Q8H PRN PRN Reason: Nausea Hydrocortisone 2.5% Rectal Cr [Anusol HC Cream] 1 applic TOP QID PRN PRN Reason: Hemorrhoids Ergocalciferol [Drisdol] 50,000 unit PO MO Albuterol/Ipratropium Neb [Duoneb] 3 ml RESP TX RT Q6H PRN PRN Reason: Shortness Of Breath/Wheezing Metoprolol Succinate Xl [Toprol Xl] 25 mg PO DAILY HydrOXYzine PAMOATE CAP [Vistaril Cap] 25 mg PO Q6H PRN PRN Reason: Anxiety Atorvastatin [Lipitor] 40 mg PO BEDTIME Aspirin Chew Tab 81 mg PO DAILY Lisinopril 5 mg PO BID Furosemide Tab [Lasix Tab] 40 mg PO DAILY Cyproheptadine Tab [Periactin Tab] 4 mg PO BID OLANZapine TAB [ZyPREXA Tab] 5 mg PO BEDTIME Amino Acids/Protein Hydrolys [Pro-Stat Sugar Free Liquid] 30 ml PO BEDTIME Azithromycin Tab [Zithromax Tab] 250 mg PO DAILY valACYclovir [Valtrex] 500 mg PO DAILY Omeprazole [Prilosec] 20 mg PO DAILY Polyethylene Glycol Powder [Miralax] 17 gm PO BEDTIME PRN PRN Reason: Constipation Vit C/Vit E AC/Lut/Copper/Zinc [Preservision Lutein Softgel] 1 each PO BID Cyanocobalamin Tab [Vitamin B12 Tab] 1,000 mcg PO DAILY Mirtazapine [Remeron] 30 mg PO BEDTIME Escitalopram [Lexapro] 10 mg PO DAILY Methylphenidate HCl [Ritalin] 10 mg PO BID - Follow Up or Referral - Forms/Instructions
--- NOTE | 2016-11-02 15:15 | XRay Report ---
XR chest 1V portable Indication: Central line placement Comparison: Chest x-ray 10/31/2016 Technique: Portable AP chest was performed. Findings: Right-sided IJ central venous catheter terminates within the superior vena cava. No pneumothorax or other complication from line placement is demonstrated. A Limited inspiration is present and bilaterally, central vasculature has increased in prominence and perihilar interstitial stranding is noted suggesting a component of crowding. Minimal pulmonary edema is not excluded. Chest is otherwise stable. Impression: 1. Interval placement of right-sided IJ catheter without evidence of complication. 2. Vascular crowding and/or mild pulmonary edema could be considered. 3. Otherwise stable chest. 11/02/2016 3:12 PM PROCEDURE INTERPRETED AT [facility] DEPARTMENT OF RADIOLOGY Final Report Signed by: Dr. Andrew Johnson
[2016-11-02 15:41] LABS: Calcium 7.1 MG/DL (8.5-10.1); Magnesium 1.8 MG/DL (1.8-2.4); Osmolality,Calculated 317.7 MOS/KG (273-304); Potassium 3.9 MMOL/L (3.5-5.1)
[2016-11-02] MEDS: LEVOFLOXACIN INJ 250 MG in PREMIX 1 EACH IV SCH (16:28)
[2016-11-02] MEDS: PHENYLEPHRINE INJ 160 MG in SODIUM CHLORIDE 0.9% 234 ML IV SCH (17:28)
[2016-11-02] MEDS: ENOXAPARIN 30 MG/0.3 ML SYRINGE SUBCUT SCH (21:35)
[2016-11-03] MEDS: STERILE WATER IV SCH ×4 (03:20→23:48)
[2016-11-03] MEDS: SODIUM ACETATE IV SCH ×4 (03:20→23:48)
[2016-11-03] MEDS: MORPHINE 2 MG/1 ML SYRINGE IV PRN ×2 (03:25→07:39)
[2016-11-03] MEDS: DESITIN 4OZ/NYSTATIN 15 GRAM MIXTURE PASTE TOP SCH ×3 (04:04→21:23)
[2016-11-03 05:02] LABS: Basophils % 0.2 % (0.0-0.8); Eosinophils # 0.3 10*3/uL (0.0-0.87); Eosinophils % 1.3 % (0.00-10.9); Hematocrit 32.8 VOL% (42.0-52.0); Hemoglobin 10.9 GM/DL (14.0-18.0); Immature Granulocytes % 1.1 %; Immature Granulocytes Absolute 0.21 #; Lymphocytes % 10.4 % (21.2-54.2); Mean Corpuscular HGB Conc 33.2 GM/DL (32-36); Mean Corpuscular Hemoglobin 31 PG (27-34); Mean Corpuscular Volume 91.9 FL (87-102); Mean Platelet Volume 10.8 FL (9.6-12.0); Monocytes # 0.9 10*3/uL (0.11-0.8); Monocytes % 4.8 % (1.7-12.7); Neutrophils # 15.4 10*3/uL (1.4-7.4); Neutrophils % 82.2 % (38.7-73.9); Platelet Count 140 T/CUMM (130-400); Red Blood Count 3.57 MC/CUMM (3.8-5.5); Red Cell Distribution Width 15.5 % (9.3-17.3); White Blood Count 18.8 T/CUMM (4-12)
[2016-11-03 05:26] LABS: Burr Cells Slight; Elliptocytes Few; Hypochromasia 1+; Platelet Estimate Normal
[2016-11-03 05:27] LABS: Microcytosis Slight
[2016-11-03 05:31] LABS: Calcium 7.7 MG/DL (8.5-10.1); Magnesium 1.6 MG/DL (1.8-2.4); Osmolality,Calculated 312.8 MOS/KG (273-304); Potassium 3.7 MMOL/L (3.5-5.1)
[2016-11-03] MEDS: LEVOTHYROXINE 100 MCG VIAL IV SCH (06:33)
--- NOTE | 2016-11-03 06:49 | XRay Report ---
Portable chest Date: 11/03/2016 Clinical history: CHF Comparison: 11/02/2016 Technique: Portable AP sitting chest Findings: Stable cardiomegaly with uncoiling of the aorta. Multiple skin folds are noted with stable right IJ CVP line. Minimal reduction in the parenchymal findings at the lung bases with smaller pleural effusions. Stable mediastinum and osseous structures. Impression: Minimally improved pulmonary edema/infiltration with minimally smaller pleural effusions. Skin folds limit the exam. PROCEDURE INTERPRETED AT [facility] DEPARTMENT OF RADIOLOGY Final Report Signed by: Dr. Kiana Medrano
[2016-11-03] MEDS: PANTOPRAZOLE 40 MG VIAL IV SCH (08:39)
--- NOTE | 2016-11-03 08:45 | Cardiology Progress Note ---
Assessment and Plan - Time spent with patient Time spent with patient: Greater than 30 minutes (1) Dementia Status: Chronic Assessment and plan: SEE PLAN OF CARE LISTED BELOW Current Visit: Yes (2) Dilated cardiomyopathy Status: Chronic Assessment and plan: SEE PLAN OF CARE LISTED BELOW Current Visit: Yes (3) Acute renal failure Status: Acute Assessment and plan: SEE PLAN OF CARE LISTED BELOW Current Visit: Yes (4) Severe sepsis with acute organ dysfunction Status: Acute Assessment and plan: SEE PLAN OF CARE LISTED BELOW Current Visit: Yes (5) Afib Problem details: give lopressor 5mg IVP now stat, may repeat q5min x 2. Consult cardiology. Status: Acute Assessment and plan: SEE PLAN OF CARE LISTED BELOW Current Visit: Yes Qualifiers: Atrial fibrillation type: unspecified Qualified Code(s): I48.91 - Unspecified atrial fibrillation (6) Advanced age Status: Chronic Assessment and plan: SEE PLAN OF CARE LISTED BELOW Current Visit: Yes Cardiology - PN: Subj Interval history: [employer]: DR. KNUTSON PCP: DR. DELPHINE FAUST SUMMARY: Mr. Cruz, 86WM, is followed by Dr. Knutson. He was last seen in cardiology clinic September 18, 2016. Risk factors include: Advanced age, hypertension, sedentary lifestyle. History of dilated cardiomyopathy, dementia , moderate MR. History of acute on chronic systolic and diastolic CHF. Echocardiogram reveals: EF 20%, grade 2/4 diastolic dysfunction, mild MR and PAP 40 mmHg. Patient was admitted October 31, 2016 with metabolic encephalopathy due to severe sepsis with acute organ dysfunction due to urinary tract infection. Cardiology was consulted for atrial fibrillation with rapid ventricular response (this is suspected to be new onset). He has acute renal failure and was hyperkalemic on admission, hypomagnesemic as well. Troponins flat 0.201 and 0.190. Patient developed atrial fibrillation with rapid ventricular response last evening. This morning heart rate is 120 - 130 bpm. He is being maintained on [address] Knutson's clinic note, I see no prior history of known atrial fibrillation. I will give him 1 dose of IV digoxin and monitor his heart rate given his severe renal insufficiency. Again, blood pressure will not allow for introduction of a beta-geovany or calcium channel geovany. At this point he is on phenylephrine and norepinephrine. Would begin with weaning of phenylephrine first. I will order thyroid studies, close monitoring of his electrolytes as well. NOVEMBER 03, 2016: Patient is demented and is confused this morning. Overnight, 1 of 2 pressors has been weaned off. He still maintained on phenylephrine with stable vital signs. Heart rate is controlled this morning. Blood cultures are negative so far. Being treated for urinary tract infection. Chest x-ray this morning reveals mild improvement in pulmonary edema. Will give low-dose Lasix today and watch his creatinine closely. We will further discuss with Dr. Sow and await additional recommendations. ASSESSMENT/PLAN: 1. SEPSIS - continue current plan of care. Blood cultures are negative so far. He is being treated for UTI. Was treated for pneumonia in August 2016. Overnight, remains afebrile. WBCs improving (18.8 this morning). 2. ATRIAL FIBRILLATION WITH RVR - rate control achieved yesterday. Patient's blood pressure will not allow for introduction of beta-geovany and ALONDRA inhibitor. This may be new onset atrial fib but this is uncertain. Continue with low-dose Lovenox given the severe acute renal failure. 3. DEMENTIA - continue current plan of care 4. ACUTE RENAL FAILURE (STAGE IV) - nephrology has been consulted. On arrival , creatinine 10.9. Continues to improve S/P creatinine is 5.0 this morning. 5. DILATED CARDIOMYOPATHY (EF 20%) - etiology of cardiomyopathy undetermined as he is not a candidate for invasive workup. However, this is a chronic condition. When able, introduce beta blockade and ALONDRA inhibitor. 6. ELEVATED TROPONIN - this is not NSTEMI. Continue with current plan of care. Exam (Progress Note) - Constitutional Vitals: Period Temp Pulse Resp BP Sys/Macario Pulse Ox Last 24 Hr 97.3 F-97.9 F 69-136 12-22 87-133/45-85 94-100 Exam: General: [Pleasantly confused but cooperative. ] [Appears comfortable.] HEENT: [Normocephalic, atraumatic. Mucous membranes moist. No jaundice noted. Conjunctiva moist and clear, sclerae anicteric] Neck: No obvious JVD/HJR, no thyromegaly or lymphadenopathy noted. No carotid bruit appreciated Cardiac: [Irregularly irregular rhythm, controlled rate. [No obvious murmur, rub or gallop.] Lungs: [Clear to auscultation without accessory muscle use to assist the respiratory pattern.] Using oxygen via nasal cannula. Abdomen: Soft, bowel sounds normoactive. Nontender and nondistended. No abdominal bruit or thrill noted. No masses noted. Musculoskeletal: No fluid collection. Decreased range of motion is noted. Extremities: No clubbing, cyanosis noted. [ LUE edema > RUE edema. ] Generalized edema noted. Upper extremity pulses 2+. Lower extremity pulses 1+ . Capillary refill less than 3 seconds. Skin: No unusual lesions or rashes. No skin breakdown appreciated. Neuro: Awake, alert. No essential tremor is appreciated. Result/EKG - Labs CBC & BMP: 11/03/16 04:45 11/03/16 04:45 Lab Results: I have reviewed the past 24 hour labs Labs: Laboratory Results - last 24 hr 11/02/16 11/02/16 11/03/16 00:43 15:22 04:45 WBC 18.8 H RBC 3.57 L Hgb 10.9 L Hct 32.8 L MCV 91.9 MCH 31 MCHC 33.2 RDW 15.5 Plt Count 140 D MPV 10.8 Neut % (Auto) 82.2 H Lymph % (Auto) 10.4 L Bureau % (Auto) 4.8 Eos % (Auto) 1.3 Baso % (Auto) 0.2 Neut # (Auto) 15.4 H Lymph # (Auto) 2.0 Bureau # (Auto) 0.9 H Eos # (Auto) 0.3 Baso # (Auto) 0.0 Immature Gran % 1.1 Nucleated RBC % 0.0 Immature Gran # 0.21 Nucleated RBCs # 0.00 Platelet Estimate Normal Hypochromasia 1+ Microcytosis Slight Lyons Cells Slight Elliptocytes Few Morphology Comment Sodium 145 Potassium 3.9 Chloride 107 Carbon Dioxide 26 Anion Gap 15.9 H BUN 99 H D Creatinine 5.60 H GFR Calculation 10 BUN/Creatinine Ratio 17.00 Glucose 88 Calculated Osmolality 317.7 H Calcium 7.1 L Magnesium 1.8 Free T4 1.62 H TSH 3rd Generation 0.274 L 11/03/16 04:45 WBC RBC Hgb Hct MCV MCH MCHC RDW Plt Count MPV Neut % (Auto) Lymph % (Auto) Bureau % (Auto) Eos % (Auto) Baso % (Auto) Neut # (Auto) Lymph # (Auto) Bureau # (Auto) Eos # (Auto) Baso # (Auto) Immature Gran % Nucleated RBC % Immature Gran # Nucleated RBCs # Platelet Estimate Hypochromasia Microcytosis Tc Cells Elliptocytes Morphology Comment Sodium 144 Potassium 3.7 Chloride 104 Carbon Dioxide 27 Anion Gap 16.7 H BUN 91 H Creatinine 5.00 H GFR Calculation 12 BUN/Creatinine Ratio 18.00 Glucose 74 Calculated Osmolality 312.8 H Calcium 7.7 L Magnesium 1.6 L Free T4 TSH 3rd Generation - EKG EKG results: interpreted by me EKG shows: atrial fibrillation
--- NOTE | 2016-11-03 10:27 | Nephrology Progress Note ---
Nephrology - PN: Subj Interval history: UOP increasing 1470cc/24h->2200cc last 24h. Creatinine down to 5.0. Exam (PN)-Nephrology - Vital Signs Vital signs: Period Temp Pulse Resp BP Sys/Macario Pulse Ox Last 24 Hr 97.3 F-97.9 F 69-85 12-22 67-133/45-85 93-100 - General Appearance General appearance: well-developed, chronically ill EENT: ATNC, PERRL, mucous membranes dry, hearing intact Neck: no JVD, no thyromegaly Respiratory: no kyphosis, no scoliosis Cardiology: no murmurs, no rub Gastrointestinal: normoactive bowel sounds, no tenderness Integumentary: no rash, warm and dry Neurologic: no focal deficit, no asterixis Musculoskeletal: no deformities, no erythema Psychiatric: mood/affect appropriate, cooperative - Lab 11/03/16 04:45 11/03/16 04:45 Most recent lab results Calcium 7.7 MG/DL (8.5-10.1) L 11/03/16 04:45 Magnesium 1.6 MG/DL (1.8-2.4) L 11/03/16 04:45 Assessment and Plan (1) ANSHUL (acute kidney injury) Problem details: Improved. No acute indication for renal replacement therapy at this time. Status: Acute Assessment and plan: Continue IVFs, decreased rate to 75cc/hr. Current Visit: Yes (2) Sepsis Problem details: No vanc level resulted. Ordered yesterday. Reorder for random vanc level in am. Redose for level <15. Continue levofloxacin 250mg IV q48hr from first dose of 500mg given in ED. Status: Acute Current Visit: Yes (3) Acute hyperkalemia Problem details: Resolved with correction of metabolic acidosis. Status: Resolved Current Visit: Yes (4) Afib Problem details: give lopressor 5mg IVP now stat, may repeat q5min x 2. Consult cardiology. Status: Acute Current Visit: Yes Qualifiers: Atrial fibrillation type: unspecified Qualified Code(s): I48.91 - Unspecified atrial fibrillation (5) Hypernatremia Problem details: Improving with increased free water replacement. 144 this am. IVFs reduced to 75cc/hr. Status: Acute Current Visit: Yes
[2016-11-03] MEDS ORDERED: MAGNESIUM SULF RIDER 4 GM in PREMIX 1 EACH IV PRN (12:13)
[2016-11-03] MEDS: PHENYLEPHRINE INJ 160 MG in SODIUM CHLORIDE 0.9% 234 ML IV SCH ×2 (12:19→18:15)
[2016-11-03] MEDS: MAGNESIUM SULF RIDER 2 GM in PREMIX 1 EACH IV PRN (12:20)
--- NOTE | 2016-11-03 12:36 | Hospitalist Progress Note ---
Assessment and Plan (1) Septic shock Status: Acute Assessment and plan: Secondary to UTI. Requiring pressor. Continue vanc. Starting rocephin. Current Visit: Yes (2) Altered mental status Status: Acute Assessment and plan: Secondary to infection Current Visit: Yes (3) Hypotension Status: Acute Assessment and plan: Due to septic shock Continue ming Current Visit: Yes (4) ANSHUL (acute kidney injury) Problem details: Improved. No acute indication for renal replacement therapy at this time. Status: Acute Assessment and plan: Related to septic shock, renal hypoperfusion Nephrology assisting Improving with IV fluids with bicarb Current Visit: Yes (5) Hyperkalemia Status: Resolved Assessment and plan: Improving Current Visit: Yes (6) Afib Problem details: give lopressor 5mg IVP now stat, may repeat q5min x 2. Consult cardiology. Status: Acute Assessment and plan: Given a dose of lopressor Cardiology consulted Current Visit: Yes Qualifiers: Atrial fibrillation type: unspecified Qualified Code(s): I48.91 - Unspecified atrial fibrillation (7) Urinary tract infection Status: Acute Assessment and plan: Urine culture growing proteus mirabilis and enterococcus faecalis Start rocephin Current Visit: Yes Hospitalist: Subjective Interval history: No acute events overnight. Patient is more awake this morning. Not much change in leukocytosis. Urine culture proteus mirablilis and enterococcus faecalis. Proteus not sensitive for levaquin, will discontinue and start rocephin for now. Will continue vancomycin for now. Patient still now awake enough to eat, will place dobhoff and start tube feeds. Exam - Constitutional Vitals: Period Temp Pulse Resp BP Sys/Macario Pulse Ox Last 24 Hr 97.3 F-97.8 F 69-85 12-22 67-133/45-85 93-100 General appearance: normal weight - Head Head exam: Present: normocephalic, atraumatic - Eye Eye exam: Present: EOMI Pupils: Present: FRANK - ENT ENT exam: Present: normal exam - Neck Neck exam: Present: normal inspection - Respiratory Respiratory exam: Present: clear to auscultation bilaterally. Absent: rhonchi, wheezes - Cardiovascular Cardiovascular exam: Present: regular rate and rhythm - GI/Abdominal GI/Abdominal exam: Present: normal bowel sounds, soft. Absent: tenderness, rebound - Extremities Exam Extremities exam: Present: normal inspection - Back Exam Back exam: Present: normal inspection - Neurological Exam Neurological exam: Present: alert - Psychiatric Psychiatric exam: Present: normal affect, normal mood - Skin Skin exam: Present: warm, intact Results - Labs CBC & BMP: 11/03/16 04:45 11/03/16 04:45
[2016-11-03] MEDS: cefTRIAXone 1,000 MG in SODIUM CHLORIDE 0.9% 100 ML IV SCH (12:43)
[2016-11-03] MEDS ORDERED: DEXTROSE 50% 25 GM/50 ML VIAL IV PRN (13:36)
[2016-11-03] MEDS ORDERED: GLUCAGON 1 MG VIAL IM PRN (13:36)
[2016-11-03] MEDS: INSULIN REGULAR 100 UNIT/ML SUBCUT SCH (18:15)
[2016-11-03] MEDS: NOREPINEPHRINE 16 MG in SODIUM CHLORIDE 0.9% 234 ML IV SCH (18:15)
[2016-11-03] MEDS: ENOXAPARIN 30 MG/0.3 ML SYRINGE SUBCUT SCH (21:22)
[2016-11-04] MEDS: INSULIN REGULAR 100 UNIT/ML SUBCUT SCH ×4 (00:10→18:00)
[2016-11-04 04:59] LABS: Basophils % 0.2 % (0.0-0.8); Eosinophils # 0.3 10*3/uL (0.0-0.87); Eosinophils % 1.9 % (0.00-10.9); Hematocrit 31.6 VOL% (42.0-52.0); Hemoglobin 10.6 GM/DL (14.0-18.0); Immature Granulocytes % 0.8 %; Immature Granulocytes Absolute 0.12 #; Lymphocytes # 1.6 10*3/uL (1.4-4.0); Lymphocytes % 11.3 % (21.2-54.2); Mean Corpuscular HGB Conc 33.5 GM/DL (32-36); Mean Corpuscular Hemoglobin 31 PG (27-34); Mean Corpuscular Volume 91.9 FL (87-102); Mean Platelet Volume 10.7 FL (9.6-12.0); Monocytes # 0.9 10*3/uL (0.11-0.8); Monocytes % 6.2 % (1.7-12.7); Neutrophils # 11.4 10*3/uL (1.4-7.4); Neutrophils % 79.6 % (38.7-73.9); Platelet Count 125 T/CUMM (130-400); Red Blood Count 3.44 MC/CUMM (3.8-5.5); White Blood Count 14.3 T/CUMM (4-12)
[2016-11-04 05:19] LABS: Calcium 7.8 MG/DL (8.5-10.1); Magnesium 1.8 MG/DL (1.8-2.4); Osmolality,Calculated 306.1 MOS/KG (273-304); Phosphorous 3.4 MG/DL (2.5-4.9); Potassium 3.3 MMOL/L (3.5-5.1)
[2016-11-04] MEDS: LEVOTHYROXINE 100 MCG VIAL IV SCH (06:24)
[2016-11-04] MEDS: MAGNESIUM SULF RIDER 2 GM in PREMIX 1 EACH IV PRN (07:14)
[2016-11-04] MEDS: MORPHINE 2 MG/1 ML SYRINGE IV PRN ×4 (07:33→19:36)
--- NOTE | 2016-11-04 08:06 | XRay Report ---
XR chest 1V portable Indication: Confirm weighted feeding tube placement. Comparison: None. Technique: Portable AP chest was performed. Findings: Weighted feeding tube appears to project within the gastric fundus. Impression: 1. Weighted feeding tube placement as detailed. 11/04/2016 8:03 AM PROCEDURE INTERPRETED AT [facility] DEPARTMENT OF RADIOLOGY Final Report Signed by: Dr. Andrew Johnson
[2016-11-04] MEDS: PANTOPRAZOLE 40 MG VIAL IV SCH (08:15)
[2016-11-04] MEDS: DESITIN 4OZ/NYSTATIN 15 GRAM MIXTURE PASTE TOP SCH ×2 (08:18→21:09)
[2016-11-04] MEDS ORDERED: MAGNESIUM SULF RIDER 2 GM in PREMIX 1 EACH IV PRN (08:21)
[2016-11-04] MEDS ORDERED: MAGNESIUM SULF RIDER 4 GM in PREMIX 1 EACH IV PRN (08:21)
--- NOTE | 2016-11-04 08:26 | Cardiology Progress Note ---
Assessment and Plan (1) Afib Problem details: give lopressor 5mg IVP now stat, may repeat q5min x 2. Consult cardiology. Status: Acute Assessment and plan: 11/04: The patient rates are reasonably well controlled currently and we will continue his current medications. His blood pressure is borderline depending on his level of sedation. He is requiring intravenous Quique-Synephrine for blood pressure support currently. Current Visit: Yes Qualifiers: Atrial fibrillation type: unspecified Qualified Code(s): I48.91 - Unspecified atrial fibrillation (2) Dementia Status: Chronic Current Visit: Yes (3) Dilated cardiomyopathy Status: Chronic Assessment and plan: 11/04: Patient is receiving significant amount of intravenous fluid according to his I's and O's but is not in CHF currently. We will continue his current medications and follow. Current Visit: Yes Cardiology - PN: Subj Interval history: Patient with history of cardiomyopathy atrial fibrillation dementia has received significant amount of intravenous fluid and still is not showing us evidence of heart failure. He appears to be improved from a hemodynamic standpoint although he still is requiring Quique-Synephrine for blood pressure support. We are going to continue is currently an attempt to continue weaning his pressor support. He is currently sedated as he is significantly demented and combative and agitated when he is awake. His A. fib rates are from 60-110 depending on his level of consciousness. Exam (Progress Note) - Constitutional Vitals: Period Temp Pulse Resp BP Sys/Macario Pulse Ox Last 24 Hr 98 F-99.1 F 67-120 12-24 67-137/29-86 91-100 Exam: General:no acute distress. Currently sedated HEENT: no new lesions, sclerae are clear, mouth and pharynx benign Neck: supple, trachea midline, no JVD noted Lungs: no rales ronchi or wheeze is noted. pt comfortable without accesory muscle use to assist with breathing CV: Irregularly irregular rate and rhythm no murmur rub or gallop is noted. Abd: soft and nontender, BSNA, no masses. Ext: no cyanosis, clubbing or edema Neuro: grossly intact without focal neurologic deficit. Result/EKG - Labs CBC & BMP: 11/04/16 04:30 11/04/16 04:30 Labs: Laboratory Results - last 24 hr 11/03/16 11/04/1617 23:55 04:30 04:30 WBC 14.3 H RBC 3.44 L Hgb 10.6 L Hct 31.6 L MCV 91.9 MCH 31 MCHC 33.5 RDW 15.0 Plt Count 125 L MPV 10.7 Neut % (Auto) 79.6 H Lymph % (Auto) 11.3 L Elliott % (Auto) 6.2 Eos % (Auto) 1.9 Baso % (Auto) 0.2 Neut # (Auto) 11.4 H Lymph # (Auto) 1.6 Elliott # (Auto) 0.9 H Eos # (Auto) 0.3 Baso # (Auto) 0.0 Immature Gran % 0.8 Nucleated RBC % 0.0 Immature Gran # 0.12 Nucleated RBCs # 0.00 Sodium Potassium Chloride Carbon Dioxide Anion Gap BUN Creatinine GFR Calculation BUN/Creatinine Ratio Glucose POC Glucose 80 Calculated Osmolality Calcium Phosphorus Magnesium Random Vancomycin 10.9 11/04/16 11/04/16 04:30 05:55 WBC RBC Hgb Hct MCV MCH MCHC RDW Plt Count MPV Neut % (Auto) Lymph % (Auto) Elliott % (Auto) Eos % (Auto) Baso % (Auto) Neut # (Auto) Lymph # (Auto) Elliott # (Auto) Eos # (Auto) Baso # (Auto) Immature Gran % Nucleated RBC % Immature Gran # Nucleated RBCs # Sodium 142 Potassium 3.3 L Chloride 101 Carbon Dioxide 28 Anion Gap 16.3 H BUN 82 H Creatinine 4.20 H GFR Calculation 15 BUN/Creatinine Ratio 19.00 Glucose 85 POC Glucose 80 Calculated Osmolality 306.1 H Calcium 7.8 L Phosphorus 3.4 Magnesium 1.8 Random Vancomycin
[2016-11-04] MEDS ORDERED: DONEPEZIL 10 MG TABLET PO SCH (09:00)
[2016-11-04] MEDS ORDERED: ALBUTEROL/IPRATROPIUM 3 ML NEB RESP TX PRN (09:05)
[2016-11-04] MEDS: POTASSIUM CHLORIDE RIDER 10 MEQ in PREMIX 1 EACH IV PRN ×4 (09:14→17:41)
--- NOTE | 2016-11-04 09:14 | Hospitalist Progress Note ---
Assessment and Plan (1) Septic shock Status: Acute Assessment and plan: Secondary to UTI. Requiring pressor. Continue vanc and rocephin Current Visit: Yes (2) Altered mental status Status: Acute Assessment and plan: Secondary to infection Current Visit: Yes (3) Hypotension Status: Acute Assessment and plan: Due to septic shock Continue ming Current Visit: Yes (4) ANSHUL (acute kidney injury) Problem details: Improved. No acute indication for renal replacement therapy at this time. Status: Acute Assessment and plan: Related to septic shock, renal hypoperfusion Nephrology assisting Improving with IV fluids with bicarb Current Visit: Yes (5) Hyperkalemia Status: Resolved Assessment and plan: Resolved Current Visit: Yes (6) Afib Problem details: give lopressor 5mg IVP now stat, may repeat q5min x 2. Consult cardiology. Status: Acute Assessment and plan: Cardiology assisting Current Visit: Yes Qualifiers: Atrial fibrillation type: unspecified Qualified Code(s): I48.91 - Unspecified atrial fibrillation (7) Urinary tract infection Status: Acute Assessment and plan: Urine culture growing proteus mirabilis and enterococcus faecalis Continue rocephin and vancomycin Current Visit: Yes Hospitalist: Subjective Interval history: No acute events overnight. Still requiring pressors. Heart rate is now better controlled. Cardiology is assisting. Creatinine continues to trend down. Nephrology assisting. White count down to 14 today. H/H is stable. NG placed yesterday, patient pulled it out. Exam - Constitutional Vitals: Period Temp Pulse Resp BP Sys/Macario Pulse Ox Last 24 Hr 98 F-99.1 F 67-120 12-24 67-137/29-86 91-100 General appearance: normal weight - Head Head exam: Present: normocephalic, atraumatic - Eye Eye exam: Present: EOMI Pupils: Present: FRANK - ENT ENT exam: Present: normal exam - Neck Neck exam: Present: normal inspection - Respiratory Respiratory exam: Present: clear to auscultation bilaterally - Cardiovascular Cardiovascular exam: Present: regular rate and rhythm - GI/Abdominal GI/Abdominal exam: Present: normal bowel sounds, soft. Absent: tenderness, rebound - Extremities Exam Extremities exam: Present: normal inspection - Back Exam Back exam: Present: normal inspection - Neurological Exam Neurological exam: Present: alert - Psychiatric Psychiatric exam: Present: normal affect, normal mood - Skin Skin exam: Present: warm, intact Results - Labs CBC & BMP: 11/04/16 04:30 11/04/16 04:30
--- NOTE | 2016-11-04 11:12 | Nephrology Progress Note ---
Nephrology - PN: Subj Interval history: He remains confused. He is still requiring pressor support. Exam (PN)-Nephrology - Vital Signs Vital signs: Period Temp Pulse Resp BP Sys/Macario Pulse Ox Last 24 Hr 98 F-99.1 F 67-120 12-24 67-137/29-86 91-100 Exam: ENT: Normal Cardiovascular: Irregularly irregular rhythm Lungs: Clear Extremities: Trace edema - Lab 11/04/16 04:30 11/04/16 04:30 Most recent lab results Calcium 7.8 MG/DL (8.5-10.1) L 11/04/16 04:30 Phosphorus 3.4 MG/DL (2.5-4.9) 11/04/16 04:30 Magnesium 1.8 MG/DL (1.8-2.4) 11/04/16 04:30 Assessment and Plan (1) Acute renal failure Status: Acute Assessment and plan: 86-year-old man with: * ARF. Renal function continues to improve. Urine output adequate * Sepsis * Hypotension. Continue pressors * A. fib Current Visit: Yes (2) Afib Problem details: give lopressor 5mg IVP now stat, may repeat q5min x 2. Consult cardiology. Status: Acute Current Visit: Yes Qualifiers: Atrial fibrillation type: unspecified Qualified Code(s): I48.91 - Unspecified atrial fibrillation (3) Altered mental status Status: Acute Current Visit: Yes (4) Sepsis Problem details: No vanc level resulted. Ordered yesterday. Reorder for random vanc level in am. Redose for level <15. Continue levofloxacin 250mg IV q48hr from first dose of 500mg given in ED. Status: Acute Current Visit: Yes (5) Urinary tract infection Status: Acute Current Visit: Yes
[2016-11-04] MEDS: DONEPEZIL 10 MG TABLET PO SCH ×2 (12:25→16:46)
[2016-11-04] MEDS: MEMANTINE 10 MG TABLET PO SCH ×3 (12:26→21:08)
[2016-11-04] MEDS: STERILE WATER IV SCH (12:26)
[2016-11-04] MEDS: ESCITALOPRAM 10 MG TABLET PO SCH ×2 (12:26→16:47)
[2016-11-04] MEDS: SODIUM ACETATE IV SCH (12:26)
[2016-11-04] MEDS: cefTRIAXone 1,000 MG in SODIUM CHLORIDE 0.9% 100 ML IV SCH (12:27)
--- NOTE | 2016-11-04 15:43 | XRay Report ---
XR chest 1V portable Indication: Weighted feeding tube placement. Comparison: None. Technique: Portable AP chest was performed. Findings: Weighted feeding tube terminates within the right bronchus. Impression: 1. Weighted feeding tube terminates within the right bronchus. 11/04/2016 3:40 PM PROCEDURE INTERPRETED AT [facility] DEPARTMENT OF RADIOLOGY Final Report Signed by: Dr. Andrew Johnson
--- NOTE | 2016-11-04 15:47 | XRay Report ---
XR chest 1V portable Indication: Weighted feeding tube placement. Comparison: Chest x-ray same date 1443 hours. Technique: Portable AP chest was performed. Findings: Weighted feeding tube again terminates within the right bronchus. Impression: 1. Malpositioned weighted feeding tube is again demonstrated. 11/04/2016 3:44 PM PROCEDURE INTERPRETED AT [facility] DEPARTMENT OF RADIOLOGY Final Report Signed by: Dr. Andrew Johnson
[2016-11-04] MEDS: NOREPINEPHRINE 16 MG in SODIUM CHLORIDE 0.9% 234 ML IV SCH (17:14)
[2016-11-04] MEDS: PHENYLEPHRINE INJ 160 MG in SODIUM CHLORIDE 0.9% 234 ML IV SCH (17:31)
[2016-11-04] MEDS: MIRTAZAPINE 30 MG TABLET PO SCH (21:08)
[2016-11-04] MEDS: OLANZapine 5 MG TABLET PO SCH (21:09)
[2016-11-04] MEDS: ENOXAPARIN 30 MG/0.3 ML SYRINGE SUBCUT SCH (21:09)
[2016-11-05] MEDS: INSULIN REGULAR 100 UNIT/ML SUBCUT SCH ×4 (00:42→17:43)
[2016-11-05] MEDS: STERILE WATER IV SCH ×4 (00:56→16:10)
[2016-11-05] MEDS: SODIUM ACETATE IV SCH ×4 (00:56→16:10)
[2016-11-05] MEDS: MORPHINE 2 MG/1 ML SYRINGE IV PRN ×3 (02:07→22:18)
[2016-11-05 05:20] LABS: Basophils % 0.2 % (0.0-0.8); Eosinophils # 0.6 10*3/uL (0.0-0.87); Eosinophils % 5.2 % (0.00-10.9); Hematocrit 31.2 VOL% (42.0-52.0); Hemoglobin 10.4 GM/DL (14.0-18.0); Immature Granulocytes % 0.6 %; Immature Granulocytes Absolute 0.06 #; Lymphocytes # 1.6 10*3/uL (1.4-4.0); Lymphocytes % 14.9 % (21.2-54.2); Mean Corpuscular HGB Conc 33.3 GM/DL (32-36); Mean Corpuscular Hemoglobin 31 PG (27-34); Mean Corpuscular Volume 92.6 FL (87-102); Mean Platelet Volume 10.4 FL (9.6-12.0); Monocytes # 0.8 10*3/uL (0.11-0.8); Monocytes % 7.8 % (1.7-12.7); Neutrophils # 7.6 10*3/uL (1.4-7.4); Neutrophils % 71.3 % (38.7-73.9); Platelet Count 109 T/CUMM (130-400); Red Blood Count 3.37 MC/CUMM (3.8-5.5); White Blood Count 10.6 T/CUMM (4-12)
[2016-11-05 05:32] LABS: Calcium 7.4 MG/DL (8.5-10.1); Osmolality,Calculated 300.1 MOS/KG (273-304); Potassium 3.3 MMOL/L (3.5-5.1)
[2016-11-05] MEDS: LEVOTHYROXINE 100 MCG VIAL IV SCH (06:20)
[2016-11-05] MEDS: POTASSIUM CHLORIDE RIDER 100 ML IV SCH (07:51)
--- NOTE | 2016-11-05 07:51 | Cardiology Progress Note ---
Assessment and Plan (1) Afib Problem details: give lopressor 5mg IVP now stat, may repeat q5min x 2. Consult cardiology. Status: Acute Assessment and plan: 11/04: The patient rates are reasonably well controlled currently and we will continue his current medications. His blood pressure is borderline depending on his level of sedation. He is requiring intravenous Quique-Synephrine for blood pressure support currently. 11/05: His blood pressures are reasonable this morning. His rates are still around 100 which I think is probably appropriate given the situation. Continuing support. Current Visit: Yes Qualifiers: Atrial fibrillation type: unspecified Qualified Code(s): I48.91 - Unspecified atrial fibrillation (2) Dementia Status: Chronic Current Visit: Yes (3) Dilated cardiomyopathy Status: Chronic Assessment and plan: 11/04: Patient is receiving significant amount of intravenous fluid according to his I's and O's but is not in CHF currently. We will continue his current medications and follow. Current Visit: Yes Cardiology - PN: Subj Interval history: Patient's heart rate is reasonably stable currently. He is awake and answers questions appropriately although he still significantly demented. He is on low- dose phenylephrine and will try to taper and discontinue that over the next 24 hours or so. Otherwise he is cardiac stable. Exam (Progress Note) - Constitutional Vitals: Period Temp Pulse Resp BP Sys/Macario Pulse Ox Last 24 Hr 97.4 F-100.0 F 73-133 11-102 54-126/32-104 88-99 Exam: General:no acute distress. Currently sedated HEENT: no new lesions, sclerae are clear, mouth and pharynx benign Neck: supple, trachea midline, no JVD noted Lungs: no rales ronchi or wheeze is noted. pt comfortable without accesory muscle use to assist with breathing CV: Irregularly irregular rate and rhythm no murmur rub or gallop is noted. Abd: soft and nontender, BSNA, no masses. Ext: no cyanosis, clubbing or edema Neuro: grossly intact without focal neurologic deficit. Result/EKG - Labs CBC & BMP: 11/05/16 05:14 11/05/16 05:14 Labs: Laboratory Results - last 24 hr 11/04/16 11/04/16 11/04/16 11:25 15:36 17:55 WBC RBC Hgb Hct MCV MCH MCHC RDW Plt Count MPV Neut % (Auto) Lymph % (Auto) [place] % (Auto) Eos % (Auto) Baso % (Auto) Neut # (Auto) Lymph # (Auto) [place] # (Auto) Eos # (Auto) Baso # (Auto) Immature Gran % Nucleated RBC % Immature Gran # Nucleated RBCs # Sodium Potassium 3.3 L Chloride Carbon Dioxide Anion Gap BUN Creatinine GFR Calculation BUN/Creatinine Ratio Glucose POC Glucose 82 81 Calculated Osmolality Calcium Magnesium 11/04/16 11/04/16 11/05/16 21:27 23:43 05:14 WBC 10.6 RBC 3.37 L Hgb 10.4 L Hct 31.2 L MCV 92.6 MCH 31 MCHC 33.3 RDW 15.0 Plt Count 109 L MPV 10.4 Neut % (Auto) 71.3 Lymph % (Auto) 14.9 L [place] % (Auto) 7.8 Eos % (Auto) 5.2 Baso % (Auto) 0.2 Neut # (Auto) 7.6 H Lymph # (Auto) 1.6 [place] # (Auto) 0.8 Eos # (Auto) 0.6 Baso # (Auto) 0.0 Immature Gran % 0.6 Nucleated RBC % 0.0 Immature Gran # 0.06 Nucleated RBCs # 0.00 Sodium Potassium 3.5 Chloride Carbon Dioxide Anion Gap BUN Creatinine GFR Calculation BUN/Creatinine Ratio Glucose POC Glucose 95 Calculated Osmolality Calcium Magnesium 11/05/16 11/05/16 11/05/16 05:14 05:56 07:23 WBC RBC Hgb Hct MCV MCH MCHC RDW Plt Count MPV Neut % (Auto) Lymph % (Auto) [place] % (Auto) Eos % (Auto) Baso % (Auto) Neut # (Auto) Lymph # (Auto) [place] # (Auto) Eos # (Auto) Baso # (Auto) Immature Gran % Nucleated RBC % Immature Gran # Nucleated RBCs # Sodium 142 Potassium 3.3 L Chloride 101 Carbon Dioxide 28 Anion Gap 16.3 H BUN 68 H Creatinine 3.20 H GFR Calculation 21 BUN/Creatinine Ratio 21.00 H Glucose 66 L POC Glucose 72 L 96 Calculated Osmolality 300.1 Calcium 7.4 L Magnesium 2.0
[2016-11-05] MEDS: ESCITALOPRAM 10 MG TABLET PO SCH (08:24)
[2016-11-05] MEDS: DONEPEZIL 10 MG TABLET PO SCH (08:24)
[2016-11-05] MEDS: MEMANTINE 10 MG TABLET PO SCH ×2 (08:25→22:20)
[2016-11-05] MEDS: PANTOPRAZOLE 40 MG VIAL IV SCH (08:28)
[2016-11-05] MEDS: DESITIN 4OZ/NYSTATIN 15 GRAM MIXTURE PASTE TOP SCH ×2 (08:29→22:20)
--- NOTE | 2016-11-05 11:30 | Hospitalist Progress Note ---
Assessment and Plan (1) Septic shock Status: Acute Assessment and plan: Secondary to UTI. Requiring pressor. Continue vanc and rocephin Current Visit: Yes (2) Altered mental status Status: Acute Assessment and plan: Secondary to infection Current Visit: Yes (3) Hypotension Status: Acute Assessment and plan: Due to septic shock Continue ming Current Visit: Yes (4) ANSHUL (acute kidney injury) Problem details: Improved. No acute indication for renal replacement therapy at this time. Status: Acute Assessment and plan: Related to septic shock, renal hypoperfusion Nephrology assisting Improving with IV fluids with bicarb Current Visit: Yes (5) Hyperkalemia Status: Resolved Assessment and plan: Resolved Current Visit: Yes (6) Afib Problem details: give lopressor 5mg IVP now stat, may repeat q5min x 2. Consult cardiology. Status: Acute Assessment and plan: Cardiology assisting Current Visit: Yes Qualifiers: Atrial fibrillation type: unspecified Qualified Code(s): I48.91 - Unspecified atrial fibrillation (7) Urinary tract infection Status: Acute Assessment and plan: Urine culture growing proteus mirabilis and enterococcus faecalis Continue rocephin and vancomycin Current Visit: Yes Hospitalist: Subjective Interval history: No acute events overnight. Still requiring pressors. Leukocytosis is now resolved. Creatinine continues to improve. Patient is more awake but not awake enough to eat. Per reports he has not been eating well for quite a while. Will call his nephew to discuss peg tube placement. Exam - Constitutional Vitals: Period Temp Pulse Resp BP Sys/Macario Pulse Ox Last 24 Hr 97.4 F-100.0 F 73-133 11-102 54-126/32-104 88-99 General appearance: normal weight - Head Head exam: Present: normocephalic, atraumatic - Eye Eye exam: Present: EOMI Pupils: Present: FRANK - ENT ENT exam: Present: normal exam - Neck Neck exam: Present: normal inspection - Respiratory Respiratory exam: Present: clear to auscultation bilaterally - Cardiovascular Cardiovascular exam: Present: regular rate and rhythm - GI/Abdominal GI/Abdominal exam: Present: normal bowel sounds, soft. Absent: tenderness, rebound - Extremities Exam Extremities exam: Present: normal inspection - Back Exam Back exam: Present: normal inspection - Neurological Exam Neurological exam: Present: alert - Psychiatric Psychiatric exam: Present: normal affect - Skin Skin exam: Present: warm, intact Results - Labs CBC & BMP: 11/05/16 05:14 11/05/16 05:14
--- NOTE | 2016-11-05 12:43 | Nephrology Progress Note ---
Nephrology - PN: Subj Interval history: He is awake but remains confused. Still requiring pressors Exam (PN)-Nephrology - Vital Signs Vital signs: Period Temp Pulse Resp BP Sys/Macario Pulse Ox Last 24 Hr 97.4 F-100.0 F 73-133 11-102 54-126/32-104 88-99 Exam: ENT: Normal Cardiovascular: Irregularly irregular rhythm Lungs: Clear Extremities: Trace edema - Lab 11/05/16 05:14 11/05/16 Unknown Most recent lab results Calcium 7.4 MG/DL (8.5-10.1) L 11/05/16 05:14 Phosphorus 3.4 MG/DL (2.5-4.9) 11/04/16 04:30 Magnesium 2.0 MG/DL (1.8-2.4) 11/05/16 05:14 Assessment and Plan (1) Acute renal failure Status: Acute Assessment and plan: 86-year-old man with: * ARF. Renal function improving * Sepsis * Hypotension. Continue pressors * A. fib Current Visit: Yes (2) Afib Problem details: give lopressor 5mg IVP now stat, may repeat q5min x 2. Consult cardiology. Status: Acute Current Visit: Yes Qualifiers: Atrial fibrillation type: unspecified Qualified Code(s): I48.91 - Unspecified atrial fibrillation (3) Altered mental status Status: Acute Current Visit: Yes (4) Sepsis Problem details: No vanc level resulted. Ordered yesterday. Reorder for random vanc level in am. Redose for level <15. Continue levofloxacin 250mg IV q48hr from first dose of 500mg given in ED. Status: Acute Current Visit: Yes (5) Urinary tract infection Status: Acute Current Visit: Yes
[2016-11-05] MEDS: cefTRIAXone 1,000 MG in SODIUM CHLORIDE 0.9% 100 ML IV SCH (13:06)
[2016-11-05] MEDS: POTASSIUM CHLORIDE RIDER 10 MEQ in PREMIX 1 EACH IV PRN (13:13)
[2016-11-05] MEDS: PHENYLEPHRINE INJ 160 MG in SODIUM CHLORIDE 0.9% 234 ML IV SCH (17:40)
[2016-11-05] MEDS: NOREPINEPHRINE 16 MG in SODIUM CHLORIDE 0.9% 234 ML IV SCH (18:02)
[2016-11-05] MEDS: ENOXAPARIN 30 MG/0.3 ML SYRINGE SUBCUT SCH (22:19)
[2016-11-05] MEDS: MIRTAZAPINE 30 MG TABLET PO SCH (22:20)
[2016-11-05] MEDS: OLANZapine 5 MG TABLET PO SCH (22:20)
[2016-11-06] MEDS: SKIN HEALING OINT (AQUAPHOR) 50 GM TUBE TOP PRN (03:30)
[2016-11-06] MEDS: INSULIN REGULAR 100 UNIT/ML SUBCUT SCH ×3 (03:34→11:49)
[2016-11-06] MEDS: SODIUM ACETATE IV SCH (05:10)
[2016-11-06] MEDS: STERILE WATER IV SCH (05:10)
[2016-11-06 05:57] LABS: Basophils % 0.2 % (0.0-0.8); Eosinophils # 0.4 10*3/uL (0.0-0.87); Eosinophils % 3.8 % (0.00-10.9); Hematocrit 32.3 VOL% (42.0-52.0); Hemoglobin 10.7 GM/DL (14.0-18.0); Immature Granulocytes % 0.6 %; Immature Granulocytes Absolute 0.06 #; Lymphocytes % 9.5 % (21.2-54.2); Mean Corpuscular HGB Conc 33.1 GM/DL (32-36); Mean Corpuscular Hemoglobin 31 PG (27-34); Mean Corpuscular Volume 94.7 FL (87-102); Mean Platelet Volume 10.7 FL (9.6-12.0); Neutrophils # 7.9 10*3/uL (1.4-7.4); Neutrophils % 75.9 % (38.7-73.9); Platelet Count 117 T/CUMM (130-400); Red Blood Count 3.41 MC/CUMM (3.8-5.5); Red Cell Distribution Width 14.9 % (9.3-17.3); White Blood Count 10.3 T/CUMM (4-12)
[2016-11-06] MEDS: LEVOTHYROXINE 100 MCG VIAL IV SCH (06:22)
[2016-11-06 06:31] LABS: Calcium 7.8 MG/DL (8.5-10.1); Magnesium 1.7 MG/DL (1.8-2.4); Osmolality,Calculated 294.1 MOS/KG (273-304); Potassium 3.4 MMOL/L (3.5-5.1); Prealbumin 5.9 MG/DL (20-40)
[2016-11-06] MEDS: MAGNESIUM SULF RIDER 2 GM in PREMIX 1 EACH IV PRN (07:08)
[2016-11-06] MEDS: POTASSIUM CHLORIDE RIDER 100 ML IV SCH (07:10)
--- NOTE | 2016-11-06 07:15 | XRay Report ---
Referring Physician: Sonny Damico Exam: XR chest 1V portable Date: November 06, 2016 at 2:57 AM Reason: Shortness of breath Comparison: Chest one view portable November 04, 2016 Findings: A right IJ catheter is again in place, but the previously seen Keofeed tube is no longer present. The cardiac silhouette is again enlarged, and the thoracic aorta is tortuous with calcified plaque. There are scattered opacities within both lungs, mainly within the left lower lung zone. This could represent pulmonary edema or pneumonia with atelectasis. No pneumothorax is identified, but there may be mild bilateral pleural fluid. The osseous structures appear stable. Impression: 1. The previously seen malpositioned Keofeed tube is no longer identified. 2. There are persistent opacities within both lungs which may be slightly more prominent within the left lower lung zone. PROCEDURE INTERPRETED AT [facility] DEPARTMENT OF RADIOLOGY Final Report Signed by: Dr. Carie Suárez
--- NOTE | 2016-11-06 08:01 | Cardiology Progress Note ---
Assessment and Plan (1) Afib Problem details: give lopressor 5mg IVP now stat, may repeat q5min x 2. Consult cardiology. Status: Acute Assessment and plan: 86-year-old male, admitted with urosepsis, severe acute kidney injury, had transient atrial fibrillation, vital pressor. Baseline dementia, hypertension. Now off pressors. -AF. Now back in sinus rhythm. He would be very high risk candidate for anticoagulation due to comorbidities. -BP. Now off pressors. If remains stable, we may soon start low dose beta- geovany, for AF/NICM. -NICM. Chronic. Elevated troponins were likely due to sepsis, acute kidney injury. Current Visit: Yes Qualifiers: Atrial fibrillation type: unspecified Qualified Code(s): I48.91 - Unspecified atrial fibrillation (2) Altered mental status Status: Acute Current Visit: Yes (3) Acute renal failure Status: Acute Current Visit: Yes (4) Septic shock Status: Acute Current Visit: Yes (5) Dementia Status: Chronic Current Visit: Yes (6) Dilated cardiomyopathy Status: Chronic Current Visit: Yes Cardiology - PN: Subj Interval history: He is moaning during physical exam, by gently touching his skin. Not responding adequately. Sinus rhythm, with frequent PACs on telemetry. Renal function improving. Blood pressure improved. Off pressors. Exam (Progress Note) - Constitutional Vitals: Period Temp Pulse Resp BP Sys/Macario Pulse Ox Last 24 Hr 97.5 F-98 F 76-108 1-25 78-122/46-76 90-99 General appearance: normal weight, no acute distress - Head Head exam: Present: normal inspection, normocephalic - Eye Eye exam: Absent: conjunctival injection Pupils: Absent: dilated - ENT ENT exam: Present: normal external ear exam - Neck Neck exam: Present: normal inspection - Respiratory Respiratory exam: Present: decreased breath sounds - Cardiovascular Cardiovascular exam: Present: irregular rhythm, systolic murmur - GI/Abdominal GI/Abdominal exam: Present: guarding, hypoactive bowel sounds - Extremities Exam Extremities exam: Present: normal inspection, normal capillary refill, edema (1+ ) - Neurological Exam Neurological exam: Present: oriented X3, altered - Skin Skin exam: Present: normal color, warm. Absent: cyanosis Result/EKG - Labs CBC & BMP: 11/06/16 05:00 11/06/16 05:00 Lab Results: I have reviewed the past 24 hour labs Labs: Laboratory Results - last 24 hr 11/05/16 11/05/16 11/05/16 11:50 15:50 17:33 WBC RBC Hgb Hct MCV MCH MCHC RDW Plt Count MPV Neut % (Auto) Lymph % (Auto) [place] % (Auto) Eos % (Auto) Baso % (Auto) Neut # (Auto) Lymph # (Auto) [place] # (Auto) Eos # (Auto) Baso # (Auto) Immature Gran % Nucleated RBC % Immature Gran # Nucleated RBCs # Sodium Potassium Chloride Carbon Dioxide Anion Gap BUN Creatinine GFR Calculation BUN/Creatinine Ratio Glucose POC Glucose 75 89 90 Calculated Osmolality Calcium Magnesium Prealbumin 11/05/16 11/06/16 11/06/16 Unknown 00:03 05:00 WBC 10.3 RBC 3.41 L Hgb 10.7 L Hct 32.3 L MCV 94.7 MCH 31 MCHC 33.1 RDW 14.9 Plt Count 117 L MPV 10.7 Neut % (Auto) 75.9 H Lymph % (Auto) 9.5 L [place] % (Auto) 10.0 Eos % (Auto) 3.8 Baso % (Auto) 0.2 Neut # (Auto) 7.9 H Lymph # (Auto) 1.0 L [place] # (Auto) 1.0 H Eos # (Auto) 0.4 Baso # (Auto) 0.0 Immature Gran % 0.6 Nucleated RBC % 0.0 Immature Gran # 0.06 Nucleated RBCs # 0.00 Sodium Potassium 3.4 L Chloride Carbon Dioxide Anion Gap BUN Creatinine GFR Calculation BUN/Creatinine Ratio Glucose POC Glucose 110 H Calculated Osmolality Calcium Magnesium Prealbumin 11/06/16 11/06/16 05:00 06:00 WBC RBC Hgb Hct MCV MCH MCHC RDW Plt Count MPV Neut % (Auto) Lymph % (Auto) [place] % (Auto) Eos % (Auto) Baso % (Auto) Neut # (Auto) Lymph # (Auto) [place] # (Auto) Eos # (Auto) Baso # (Auto) Immature Gran % Nucleated RBC % Immature Gran # Nucleated RBCs # Sodium 142 Potassium 3.4 L Chloride 101 Carbon Dioxide 29 Anion Gap 15.4 H BUN 52 H D Creatinine 2.40 H GFR Calculation 29 BUN/Creatinine Ratio 21.00 H Glucose 70 L POC Glucose 73 L Calculated Osmolality 294.1 Calcium 7.8 L Magnesium 1.7 L Prealbumin 5.9 L - EKG EKG results: interpreted by me
[2016-11-06] MEDS: DONEPEZIL 10 MG TABLET PO SCH (09:27)
[2016-11-06] MEDS: MEMANTINE 10 MG TABLET PO SCH (09:27)
[2016-11-06] MEDS: ESCITALOPRAM 10 MG TABLET PO SCH (09:27)
[2016-11-06] MEDS ORDERED: AMPICILLIN INJ 500 MG in SODIUM CHLORIDE 0.9% 100 ML IV SCH (10:30)
[2016-11-06] MEDS: PANTOPRAZOLE 40 MG VIAL IV SCH (10:42)
[2016-11-06] MEDS: MORPHINE 2 MG/1 ML SYRINGE IV PRN (10:42)
[2016-11-06] MEDS: POTASSIUM CHLORIDE RIDER 10 MEQ in PREMIX 1 EACH IV PRN (10:43)
[2016-11-06] MEDS: DESITIN 4OZ/NYSTATIN 15 GRAM MIXTURE PASTE TOP SCH (10:50)
[2016-11-06] MEDS ORDERED: METHYLPHENIDATE 5 MG TABLET PO SCH (11:00)
--- NOTE | 2016-11-06 11:18 | Hospitalist Progress Note ---
Assessment and Plan (1) Septic shock Status: Acute Assessment and plan: Secondary to UTI. Requiring pressor. Continue vanc and rocephin Current Visit: Yes (2) Altered mental status Status: Acute Assessment and plan: Secondary to infection Current Visit: Yes (3) Hypotension Status: Acute Assessment and plan: Due to septic shock Continue ming Current Visit: Yes (4) ANSHUL (acute kidney injury) Problem details: Improved. No acute indication for renal replacement therapy at this time. Status: Acute Assessment and plan: Related to septic shock, renal hypoperfusion Nephrology assisting Improving with IV fluids with bicarb Current Visit: Yes (5) Hyperkalemia Status: Resolved Assessment and plan: Resolved Current Visit: Yes (6) Afib Problem details: give lopressor 5mg IVP now stat, may repeat q5min x 2. Consult cardiology. Status: Acute Assessment and plan: Cardiology assisting Current Visit: Yes Qualifiers: Atrial fibrillation type: unspecified Qualified Code(s): I48.91 - Unspecified atrial fibrillation (7) Urinary tract infection Status: Acute Assessment and plan: Urine culture growing proteus mirabilis and enterococcus faecalis Continue rocephin and vancomycin Current Visit: Yes Exam - Constitutional Vitals: Period Temp Pulse Resp BP Sys/Macario Pulse Ox Last 24 Hr 97.3 F-98 F 76-108 1-29 78-122/46-76 87-99 Results - Labs CBC & BMP: 11/06/16 05:00 11/06/16 05:00
--- NOTE | 2016-11-06 11:28 | Event Note ---
No acute events overnight. Patient off pressors as of this am. Creatinine is improving. Patient still does not have an appetite. Per reports this was an ongoing problem at his alf. Called patient's nephew, Eric Shah, to discuss the possibility of peg placement. He does not believe that the patient would want a peg tube placed. He believes that at this stage the patient would only want to be made comfortable. He does not want the patient placed back on pressors if his blood pressure drops again. We will now ignitiate comfort care measures only. Will work on placement now, possibly back to his alf.
[2016-11-06] MEDS ORDERED: LORazepam 2 MG/1 ML VIAL IV PRN (11:35)
[2016-11-06] MEDS ORDERED: MORPHINE 2 MG/1 ML SYRINGE IV PRN (11:36)
--- NOTE | 2016-11-06 11:50 | Infectious Disease Consult ---
Assessment and Plan (1) ANSHUL (acute kidney injury) Problem details: Improved. No acute indication for renal replacement therapy at this time. Status: Acute Assessment and plan: Probably multifactorial related to septic shock and decreased oral intake with dehydration. Renal function much improved since admission. Current Visit: Yes (2) Afib Problem details: give lopressor 5mg IVP now stat, may repeat q5min x 2. Consult cardiology. Status: Acute Current Visit: Yes Qualifiers: Atrial fibrillation type: unspecified Qualified Code(s): I48.91 - Unspecified atrial fibrillation (3) Altered mental status Status: Acute Current Visit: Yes (4) Septic shock Status: Acute Assessment and plan: Due to urinary tract infection. Blood cultures were negative. BP improved with antibiotics and patient now off pressors. Current Visit: Yes (5) Urinary tract infection Status: Acute Assessment and plan: UTI with Proteus and enterococcus isolated. Recommendations: 1. Discontinue ceftriaxone 2. Change ampicillin dose of 500 mg every 6 hours to 1 g every 8 hours, dosed for current renal function Since I saw the patient I note that he has been placed on comfort measures. I am not sure if this means discontinuing all treatment including antibiotics. Will confirm with hospitalist. If that is the case then I will sign off now. Thank you very much for the consult. Current Visit: Yes (6) Dementia Status: Chronic Current Visit: Yes History of Present Illness Chief complaint: Positive urine culture, advised antibiotic therapy History of present illness: History obtained from chart as patient was confused. Mr. Cruz is a 86 year old male who [facility] and was brought to the hospital several days ago with altered mental status. He was hypotensive requiring vasopressor support. He had acute renal failure with creatinine over 10 felt to be due to dehydration. Patient also was noted to have purulent urine on admission and culture came up positive for Enterococcus faecalis and Proteus. Patient was on ceftriaxone. I am asked to advise antibiotic therapy. Since admission patient has come off vasopressor support. He remains confused. Home Medications Medication Instructions Recorded Confirmed Type Albuterol/Ipratropium Neb [Duoneb] 3 ml RESP TX RT Q6H PRN 10/31/16 10/31/16 History Amino Acids/Protein Hydrolys 30 ml PO BEDTIME 10/31/16 10/31/16 History [Pro-Stat Sugar Free Liquid] Aspirin Chew Tab 81 mg PO DAILY 10/31/16 10/31/16 History Atorvastatin [Lipitor] 40 mg PO BEDTIME 10/31/16 10/31/16 History Azithromycin Tab [Zithromax Tab] 250 mg PO DAILY 10/31/16 10/31/16 History Calcium (Citr)/Vit D 200-125 1 tablet PO DAILY 10/31/16 10/31/16 History [Citracal + D] Cyanocobalamin Tab [Vitamin B12 1,000 mcg PO DAILY 10/31/16 10/31/16 History Tab] Cyproheptadine Tab [Periactin Tab] 4 mg PO BID 10/31/16 10/31/16 History Docusate Sodium [Colace] 100 mg PO TID 10/31/16 10/31/16 History Ergocalciferol [Drisdol] 50,000 unit PO MO 10/31/16 10/31/16 History Escitalopram [Lexapro] 10 mg PO DAILY 10/31/16 10/31/16 History Furosemide Tab [Lasix Tab] 40 mg PO DAILY 10/31/16 10/31/16 History Gabapentin 300 mg PO BEDTIME 10/31/16 10/31/16 History HydrOXYzine PAMOATE CAP [Vistaril 25 mg PO Q6H PRN 10/31/16 10/31/16 History Cap] Hydrocortisone 2.5% Rectal Cr 1 applic TOP QID PRN 10/31/16 10/31/16 History [Anusol HC Cream] Lisinopril 5 mg PO BID 10/31/16 10/31/16 History Magnesium Hydroxide Susp [Milk of 30 ml PO Q12H PRN 10/31/16 10/31/16 History Magnesia] Meloxicam [Mobic] 15 mg PO DAILY 10/31/16 10/31/16 History Memantine HCl/Donepezil HCl 1 capsule PO QPM 10/31/16 10/31/16 History [Namzaric 28-10 mg] Methylphenidate HCl [Ritalin] 10 mg PO BID 10/31/16 10/31/16 History Metoprolol Succinate Xl [Toprol Xl] 25 mg PO DAILY 10/31/16 10/31/16 History Mirtazapine [Remeron] 30 mg PO BEDTIME 10/31/16 10/31/16 History Multivitamin [Multivitamins] 1 each PO DAILY 10/31/16 10/31/16 History OLANZapine TAB [ZyPREXA Tab] 5 mg PO BEDTIME 10/31/16 10/31/16 History Omeprazole [Prilosec] 20 mg PO DAILY 10/31/16 10/31/16 History Polyethylene Glycol Powder 17 gm PO BEDTIME PRN 10/31/16 10/31/16 History [Miralax] Promethazine Tab [Phenergan Tab] 25 mg PO Q8H PRN 10/31/16 10/31/16 History Senna Tab [Senokot] 17.2 mg PO BID 10/31/16 10/31/16 History Vit C/Vit E AC/Lut/Copper/Zinc 1 each PO BID 10/31/16 10/31/16 History [Preservision Lutein Softgel] valACYclovir [Valtrex] 500 mg PO DAILY 10/31/16 10/31/16 History Allergies Allergy/AdvReac Type Severity Reaction Status Date / Time No Known Allergies Allergy Unverified 10/31/16 11:15 ROS unobtainable: due to mental status Medical,Surgical,& Family Hx - Medical History Cardio: History of: CHF, Hypertension No history of: CAD, [place] Psychological: History of: Depression Neurology: History of: Dementia Endocrine: History of: Dyslipidemia Respiratory: History of: Pneumonia Gastrointestinal: History of: GERD - Social History Smoking Status: Never smoker Frequency of Alcohol Use: Unknown Type of Drug Use: Unknown Infectious Disease Exam H&P - Constitutional Vitals: Vital Signs Temp Pulse Resp BP Pulse Ox 97.3 F L 107 H 18 103/66 94 L 11/06/16 08:00 11/06/16 11:00 11/06/16 11:00 11/06/16 11:00 11/06/16 11:00 Intake and Output 11/05/16 11/06/16 11/06/16 23:59 07:59 15:59 Intake Total 200 / 200 1126 / 1126 150 / 150 Output Total 850 / 850 695 / 695 305 / 305 Balance -650 / -650 431 / 431 -155 / -155 Intake: IV 200 / 200 1126 / 1126 150 / 150 Magnesium Sulf [place] 2 gm 50 / 50 /50 ml In Premix 1 Each @ 25 mls/hr IV .PER PROTOCOL PRN Rx#: [id number] Quique Synephrine Inj 160 mg 101 / 101 In Ns 234 ml @ 40 MCG/ MIN 3.75 mls/hr IV TITRATE AMENA Rx#: [id number] Potassium Chloride [place] 100 / 100 10 Meq/100 ml In Premix 1 Each @ 100 mls/hr IV . PER PROTOCOL PRN Rx#: [id number] Potassium Chloride [place] 100 / 100 20 Meq/100 ml @ 100 mls/ hr IV .PER PROTOCOL AMENA Rx#:[id number] Sodium Acetate 40 Meq/20 1025 / 1025 ml In Water Sterile Inj 1 ,000 ml @ 75 mls/hr IV . [id number] AMENA Rx#: [id number] Rocephin 1,000 mg In Ns 100 / 100 100 ml @ 200 mls/hr IV Q24H AMENA Rx#:[id number] Output: Urine 650 / 650 695 / 695 305 / 305 Stool 200 / 200 Other: Voiding Method Indwelling Catheter Indwelling Catheter Indwelling Catheter Weight 92.896 kg Patient Weight 11/06/16 23:59 Weight 92.896 kg Exam: General: Patient chronically ill looking, groans intermittently HEENT: Mucous membranes pink and moist, anicteric acyanotic, FRANK, no oropharyngeal exudates but mouth extremely dry Neck: Supple, no thyroid gland enlargement, no lymphadenopathy Respiratory system: Breath sounds vesicular, no crepitations or wheezes Cardiovascular: Normal S1 and S2, no murmurs appreciated Abdomen: Normal bowel sounds, soft nontender throughout, no organomegaly or mass Genitourinary: No suprapubic pain or bladder distention, clear urine from [place] catheter Extremities: Mild bilateral lower extremity edema Skin: No rash Reports - Labs CBC & BMP: 11/06/16 05:00 11/06/16 05:00 Labs: Laboratory Results - last 24 hr 11/05/16 11/05/16 11/05/16 11:50 15:50 17:33 WBC RBC Hgb Hct MCV MCH MCHC RDW Plt Count MPV Neut % (Auto) Lymph % (Auto) [place] % (Auto) Eos % (Auto) Baso % (Auto) Neut # (Auto) Lymph # (Auto) [place] # (Auto) Eos # (Auto) Baso # (Auto) Immature Gran % Nucleated RBC % Immature Gran # Nucleated RBCs # Sodium Potassium Chloride Carbon Dioxide Anion Gap BUN Creatinine GFR Calculation BUN/Creatinine Ratio Glucose POC Glucose 75 89 90 Calculated Osmolality Calcium Magnesium Prealbumin 11/05/16 11/06/16 11/06/16 Unknown 00:03 05:00 WBC 10.3 RBC 3.41 L Hgb 10.7 L Hct 32.3 L MCV 94.7 MCH 31 MCHC 33.1 RDW 14.9 Plt Count 117 L MPV 10.7 Neut % (Auto) 75.9 H Lymph % (Auto) 9.5 L [place] % (Auto) 10.0 Eos % (Auto) 3.8 Baso % (Auto) 0.2 Neut # (Auto) 7.9 H Lymph # (Auto) 1.0 L [place] # (Auto) 1.0 H Eos # (Auto) 0.4 Baso # (Auto) 0.0 Immature Gran % 0.6 Nucleated RBC % 0.0 Immature Gran # 0.06 Nucleated RBCs # 0.00 Sodium Potassium 3.4 L Chloride Carbon Dioxide Anion Gap BUN Creatinine GFR Calculation BUN/Creatinine Ratio Glucose POC Glucose 110 H Calculated Osmolality Calcium Magnesium Prealbumin 11/06/16 11/06/16 05:00 06:00 WBC RBC Hgb Hct MCV MCH MCHC RDW Plt Count MPV Neut % (Auto) Lymph % (Auto) [place] % (Auto) Eos % (Auto) Baso % (Auto) Neut # (Auto) Lymph # (Auto) [place] # (Auto) Eos # (Auto) Baso # (Auto) Immature Gran % Nucleated RBC % Immature Gran # Nucleated RBCs # Sodium 142 Potassium 3.4 L Chloride 101 Carbon Dioxide 29 Anion Gap 15.4 H BUN 52 H D Creatinine 2.40 H GFR Calculation 29 BUN/Creatinine Ratio 21.00 H Glucose 70 L POC Glucose 73 L Calculated Osmolality 294.1 Calcium 7.8 L Magnesium 1.7 L Prealbumin 5.9 L - Reports Microbiology: Blood cultures were negative - Diagnostic Findings Procedure: Chest x-ray: image reviewed by me, report reviewed by me (Patchy opacities in left lung)
[2016-11-06] MEDS ORDERED: AMPICILLIN INJ 1,000 MG in SODIUM CHLORIDE 0.9% 100 ML IV SCH (12:00)
--- NOTE | 2016-11-06 13:55 | Discharge Summary ---
Hospital Course - Hospital Course Hospital Course: Mr. Cruz is a 86 year old male with history of CHF, hypertension, depression, dementia, dyslipidemia who presented to the ED from assisted with altered mental status. Patient is a poor historian and lethargic. He was not responding to questions appropriately upon exam. Patient was tachycardic with heart rate in the low 100s. He was hypotensive with blood pressure 74/42. His white count is normal but his potassium is elevated at 6.2, creatinine elevated at 10.9. When patient was seen in the ED in September his creatinine was normal. Patient's lactic acid was normal at 1.5. Troponin elevated at 0.201. Patient found to have a urinary tract infection with moderate leukocytes. Herron was inserted and there is purulence in his urine. Patient's chest x-ray is okay and his lungs are clear. Patient was admitted to the hospitalist service to the intensive care unit for septic shock secondary to urinary tract infection. He was started on broad spectrum antibiotics and levophed. Nephrology was consulted, he was started on IV fluids with bicarb. Urine culture returned with proteus mirabilis and enterococcus faecalis, antibiotics were changed to vancomycin and rocephin. Potassium returned to normal. Creatinine with daily trend downwards. Hospital course was complicated by atrial fibrillation, cardiology was consulted, rate control was achieved. He was weaned off pressors early this morning. During admission patient started to wake up more, but still had no desire for po intake. Patient's nephew, Eric Chambers, decided that the patient would not want to have a peg placed. He has made the patient DNR/Comfort Care. He will now be discharged back to the assisted. - Time spent with patient Time with patient DS: Less than 30 minutes Diagnosis - Discharge Diagnosis (1) Septic shock Status: Resolved (2) Altered mental status Status: Acute (3) Hypotension Status: Resolved (4) ANSHUL (acute kidney injury) Status: Acute (5) Hyperkalemia Status: Resolved (6) Afib Status: Resolved (7) Urinary tract infection Status: Acute Discharge Plan - Discharge Data Disposition: Disch/Xfer to Snf Condition at Discharge: Guarded Discharge Diet: advance to your usual diet Activity: increase activity as tolerated Hygiene: no restrictions Weight Bearing at Discharge: weight bear as tolerated - Discharge Medications New LORazepam INJ [Ativan Inj] 1 mg IV Q2H PRN #0 vial PRN Reason: Anxiety Morphine Inj 2 mg IV Q2H PRN #0 syringe PRN Reason: Pain Severe (8-10) Continue Memantine HCl/Donepezil HCl [Namzaric 28-10 mg] 1 capsule PO QPM Albuterol/Ipratropium Neb [Duoneb] 3 ml RESP TX RT Q6H PRN PRN Reason: Shortness Of Breath/Wheezing OLANZapine TAB [ZyPREXA Tab] 5 mg PO BEDTIME Mirtazapine [Remeron] 30 mg PO BEDTIME Escitalopram [Lexapro] 10 mg PO DAILY Methylphenidate HCl [Ritalin] 10 mg PO BID Discontinued Meloxicam [Mobic] 15 mg PO DAILY Multivitamin [Multivitamins] 1 each PO DAILY Magnesium Hydroxide Susp [Milk of Magnesia] 30 ml PO Q12H PRN PRN Reason: Constipation Gabapentin 300 mg PO BEDTIME Calcium (Citr)/Vit D 200-125 [Citracal + D] 1 tablet PO DAILY Docusate Sodium [Colace] 100 mg PO TID Senna Tab [Senokot] 17.2 mg PO BID Promethazine Tab [Phenergan Tab] 25 mg PO Q8H PRN PRN Reason: Nausea Hydrocortisone 2.5% Rectal Cr [Anusol HC Cream] 1 applic TOP QID PRN PRN Reason: Hemorrhoids Ergocalciferol [Drisdol] 50,000 unit PO MO Metoprolol Succinate Xl [Toprol Xl] 25 mg PO DAILY HydrOXYzine PAMOATE CAP [Vistaril Cap] 25 mg PO Q6H PRN PRN Reason: Anxiety Atorvastatin [Lipitor] 40 mg PO BEDTIME Aspirin Chew Tab 81 mg PO DAILY Lisinopril 5 mg PO BID Furosemide Tab [Lasix Tab] 40 mg PO DAILY Cyproheptadine Tab [Periactin Tab] 4 mg PO BID Amino Acids/Protein Hydrolys [Pro-Stat Sugar Free Liquid] 30 ml PO BEDTIME Azithromycin Tab [Zithromax Tab] 250 mg PO DAILY valACYclovir [Valtrex] 500 mg PO DAILY Omeprazole [Prilosec] 20 mg PO DAILY Polyethylene Glycol Powder [Miralax] 17 gm PO BEDTIME PRN PRN Reason: Constipation Vit C/Vit E AC/Lut/Copper/Zinc [Preservision Lutein Softgel] 1 each PO BID Cyanocobalamin Tab [Vitamin B12 Tab] 1,000 mcg PO DAILY - Follow Up or Referral - Forms/Instructions Exam - Constitutional Vitals: Period Temp Pulse Resp BP Sys/Macario Pulse Ox Last 24 Hr 97.3 F-98 F 76-108 1-29 78-122/46-76 83-99 General appearance: normal weight - Head Head exam: Present: normocephalic, atraumatic - Eye Eye exam: Present: EOMI Pupils: Present: FRANK - ENT ENT exam: Present: normal exam - Neck Neck exam: Present: normal inspection - Respiratory Respiratory exam: Present: clear to auscultation bilaterally. Absent: rhonchi, wheezes - Cardiovascular Cardiovascular exam: Present: regular rate and rhythm - GI/Abdominal GI/Abdominal exam: Present: normal bowel sounds, soft. Absent: tenderness, rebound - Extremities Exam Extremities exam: Present: normal inspection - Back Exam Back exam: Present: normal inspection - Neurological Exam Neurological exam: Present: alert, altered - Psychiatric Psychiatric exam: Present: agitated - Skin Skin exam: Present: warm, intact Discharge Results Procedures and tests throughout hospitalization: Pending Orders 11/06/16 00:00 MRSA Surveillence, Inf Control Labs on day of discharge: Labs from last 24 hours 11/06/16 11/06/16 11/06/16 11:48 06:00 05:00 WBC RBC Hgb Hct MCV MCH MCHC RDW Plt Count MPV Neut % (Auto) Lymph % (Auto) [place] % (Auto) Eos % (Auto) Baso % (Auto) Neut # (Auto) Lymph # (Auto) [place] # (Auto) Eos # (Auto) Baso # (Auto) Immature Gran % Nucleated RBC % Immature Gran # Nucleated RBCs # Sodium 142 Potassium 3.4 L Chloride 101 Carbon Dioxide 29 Anion Gap 15.4 H BUN 52 H D Creatinine 2.40 H GFR Calculation 29 BUN/Creatinine Ratio 21.00 H Glucose 70 L POC Glucose 87 73 L Calculated Osmolality 294.1 Calcium 7.8 L Magnesium 1.7 L Prealbumin 5.9 L 11/06/16 11/06/16 11/05/16 05:00 00:03 17:33 WBC 10.3 RBC 3.41 L Hgb 10.7 L Hct 32.3 L MCV 94.7 MCH 31 MCHC 33.1 RDW 14.9 Plt Count 117 L MPV 10.7 Neut % (Auto) 75.9 H Lymph % (Auto) 9.5 L [place] % (Auto) 10.0 Eos % (Auto) 3.8 Baso % (Auto) 0.2 Neut # (Auto) 7.9 H Lymph # (Auto) 1.0 L [place] # (Auto) 1.0 H Eos # (Auto) 0.4 Baso # (Auto) 0.0 Immature Gran % 0.6 Nucleated RBC % 0.0 Immature Gran # 0.06 Nucleated RBCs # 0.00 Sodium Potassium Chloride Carbon Dioxide Anion Gap BUN Creatinine GFR Calculation BUN/Creatinine Ratio Glucose POC Glucose 110 H 90 Calculated Osmolality Calcium Magnesium Prealbumin 11/05/16 15:50 WBC RBC Hgb Hct MCV MCH MCHC RDW Plt Count MPV Neut % (Auto) Lymph % (Auto) [place] % (Auto) Eos % (Auto) Baso % (Auto) Neut # (Auto) Lymph # (Auto) [place] # (Auto) Eos # (Auto) Baso # (Auto) Immature Gran % Nucleated RBC % Immature Gran # Nucleated RBCs # Sodium Potassium Chloride Carbon Dioxide Anion Gap BUN Creatinine GFR Calculation BUN/Creatinine Ratio Glucose POC Glucose 89 Calculated Osmolality Calcium Magnesium Prealbumin DS: Provider Date of admission: 10/31/16 12:26 Primary care physician: . No PCP Attending physician on admission: Claudia Burgess MD Consults: 10/31/16 13:16 Consult to Physician [CONS] Routine Comment: acute renal failure Consulting Provider: Mars Thomas When should Consulting Provider be notified: Now 11/02/16 08:44 Consult to Physician [CONS] Routine Comment: afib RVR Consulting Provider: Odin Sow 11/02/16 09:29 Consult to Physician [CONS] Routine Comment: needs central line for pressors Consulting Provider: Kyle Pizarro When should Consulting Provider be notified: Now Consult to Specialist Group: Surgery When should Consulting Provider be notified: Now Person Notified: [email or web address] Date Notified: 11/02/16 Time Notified: 09:34 Consult Notification Comment: notified of consult 11/02/16 11:08 Consult to Pharmacy [CONS] Routine Reason for Pharmacy Consult: Dose/Manage Vancomycin 11/03/16 13:33 Consult to Dietitian [CONS] Routine Reason for Dietitian: TF-Initiate/Manage 11/06/16 09:19 Consult to Physician [CONS] Routine Comment: multiple multidrug resistant infections. Consulting Provider: Remedios Villagomez Consulting Provider Notified: Yes Consult to Specialist Group: ENT Person Notified: catalina Date Notified: 11/06/16 Time Notified: 10:15 Discharging clinician: Claudia Burgess MD
--- NOTE | 2016-11-06 15:04 | Nephrology Progress Note ---
Nephrology - PN: Subj Interval history: Pt seen this am, early. Waking up more, not taking po. Events since then noted. Family has decided to make DNR and comfort care only. Being transferred back to skilled nursing. Creatinine improved to 2.4 today. Exam (PN)-Nephrology - Vital Signs Vital signs: Period Temp Pulse Resp BP Sys/Macario Pulse Ox Last 24 Hr 97.3 F-98 F 88-108 1-29 78-122/46-76 83-99 - General Appearance General appearance: well-developed, chronically ill EENT: ATNC, PERRL Neck: no JVD, no thyromegaly Respiratory: no kyphosis, clear Cardiology: no murmurs, no rub Gastrointestinal: normoactive bowel sounds, no tenderness Integumentary: no rash, warm and dry Neurologic: no focal deficit, no asterixis Musculoskeletal: no deformities, no erythema Psychiatric: mood/affect appropriate, cooperative - Lab 11/06/16 05:00 11/06/16 05:00 Most recent lab results Calcium 7.8 MG/DL (8.5-10.1) L 11/06/16 05:00 Phosphorus 3.4 MG/DL (2.5-4.9) 11/04/16 04:30 Magnesium 1.7 MG/DL (1.8-2.4) L 11/06/16 05:00 Assessment and Plan (1) ANSHUL (acute kidney injury) Problem details: Improved. No acute indication for renal replacement therapy at this time. Status: Acute Assessment and plan: Continue maintenance IVFs, glucose containing. Current Visit: Yes (2) Acute hyperkalemia Problem details: Resolved with correction of metabolic acidosis. Status: Resolved Current Visit: Yes
[2016-11-06 15:16] VITALS: BP 88/54
== END 2016-11-06 15:15 | DRG 871 ==
LOC: EDBD → EDUNIT# → N.ED 10:07 → N.EDINP 12:26 → N.ICU 13:34
PROVIDERS: ADMIT Internal Medicine; ATTEND Internal Medicine